=== PATIENT | female | born 1970 | race Caucasian/White ===

== ENCOUNTER 2016-07-22 11:26 | Emergency (ER) | payer SELFPAY ==
[~2016-07-22] VITALS: Ht 165.1 cm; Wt 103.5 kg
[~2016-07-22 11:26] MED LIST: ACET325T9 PO; LISI1TAB7 PO; SERT25TA PO
[2016-07-22] MEDS ORDERED: IV NORMAL SALINE 1000ML BAG 1,000 ML IV SCH (11:53)
[2016-07-22] MEDS ORDERED: ONDANSETRON PF 4 MG/2 ML VIAL. IV ONE (12:00)
[2016-07-22] MEDS ORDERED: FAMOTIDINE 20 MG/2 ML VIAL IVP ONE (12:00)
[2016-07-22] MEDS ORDERED: KETOROLAC TROMETHAMINE 30 MG/ML SYRINGE. IV ONE (12:00)
--- NOTE | 2016-07-22 12:01 | EKG ---
[facility] [address] [place] [address] Test Date: 2016-07-22 Test Time: 11:47:34 Pat Name: ANA VELASQUEZ Department: Room: Gender: F Fourchette Sewer: : 1970 Requested By: Rosita CASTREJON Order Number: [id number] Reading MD: Measurements Intervals [place] Rate: 89 P: 30 GA: 124 QRS: 35 QRSD: 88 T: 24 QT: 388 QTc: 473 Interpretive Statements SINUS RHYTHM T ABNORMALITY IN ANTEROSEPTAL LEADS PROLONGED QT RI6.01 Unconfirmed report No previous ECG available for comparison
--- NOTE | 2016-07-22 12:05 | PHYS DOC ---
Past Medical History Past Medical History: Anxiety, Depression, Diverticulitis, Hypertension, Kidney Stone Past Surgical History: Tonsillectomy, Other Additional Past Surgical Histo: PARTIAL HYSTERECTOMY, ADENOIDS REMOVED Alcohol Use: None Additional Information: CHEWS TOBACCO Drug Use: None Adult General Chief Complaint Chief Complaint: ABDOMINAL PAIN HPI HPI Patient is a 45 year old female who presents with right upper quadrant abdominal pain radiating throughout the top of her abdomen associated with nausea for the past 5 days. She also has multiple loose stools throughout this time. She denies emesis. Her pain is achy, constant, with fluctuating intensity. She denies symptom association with eating. She denies fever or chills, chest pain, cough, dyspnea, dysuria, hematuria, back pain. Review of Systems Review of Systems Constitutional: Denies fever or chills [] Eyes: Denies change in visual acuity, redness, or eye pain [] HENT: Denies nasal congestion or sore throat [] Respiratory: Denies cough or shortness of breath [] Cardiovascular: No additional information not addressed in HPI [] GI: Denies vomiting, bloody stools [] : Denies dysuria or hematuria [] Musculoskeletal: Denies back pain or joint pain [] Integument: Denies rash or skin lesions [] Neurologic: Denies headache, focal weakness or sensory changes [] Endocrine: Denies polyuria or polydipsia [] Current Medications Current Medications Current Medications Medications (Trade) Dose Ordered Sig/[facility] Start Time Stop Time Status Last Admin Dose Admin Famotidine (Pepcid) 20 mg 1X ONCE 07/22/16 12:00 07/22/16 12:01 DC 07/22/16 12:09 20 MG Fentanyl Citrate 50 mcg 50 mcg PRN Q15MIN PRN 07/22/16 12:00 07/22/16 14:38 DC 07/22/16 13:52 50 MCG Ketorolac Tromethamine (Toradol) 15 mg 1X ONCE 07/22/16 12:00 07/22/16 12:01 DC 07/22/16 12:08 15 MG Ondansetron HCl (Zofran) 4 mg 1X ONCE 07/22/16 12:00 07/22/16 12:01 DC 07/22/16 12:06 4 MG Sodium Chloride (Iv Sodium Chloride 0.9% 1000ml Bag) 1,000 ml @ 1,000 mls/hr Q1H 07/22/16 11:53 07/22/16 12:52 DC 07/22/16 12:05 1,000 MLS/HR Allergies Allergies Allergies Coded Allergies Type Severity Reaction Last Updated Verified Penicillins Adverse Reaction Intermediate stomach cramps 09/25/15 No azithromycin Adverse Reaction Intermediate increases BP 09/25/15 No Physical Exam Physical Exam Constitutional: Well developed, well nourished, no acute distress, non-toxic appearance. [] HENT: Normocephalic, atraumatic, bilateral external ears normal, oropharynx moist, nose normal. [] Eyes: PERRLA, EOMI. [] Neck: Normal range of motion, supple. [] Cardiovascular:Heart rate regular rhythm [] Lungs & Thorax: Bilateral breath sounds clear to auscultation [] Abdomen: Bowel sounds normal, soft, moderate RUQ and epigastric tenderness, no guarding or rebound. [] Skin: Warm, dry, no erythema, no rash. [] Back: No tenderness, no CVA tenderness. [] Extremities: No tenderness, ROM intact, no edema. [] Neurologic: Alert and oriented X 3, normal motor function, normal sensory function, no focal deficits noted. [] Psychologic: Affect normal, judgement normal, mood normal. [] Current Patient Data Vital Signs Vital Signs Date Time Temp Pulse Resp B/P Pulse Ox O2 Delivery O2 Flow Rate FiO2 07/22/16 14:24 77 20 115/59 99 Room Air 07/22/16 14:22 2.0 07/22/16 11:35 97.9 97.9 Lab Values Laboratory Tests Test 07/22/16 11:40 07/22/16 13:55 White Blood Count 5.7x10^3/uL (4.0-11.0) Red Blood Count 4.66x10^6/uL (3.50-5.40) Hemoglobin 13.4g/dL (12.0-15.5) Hematocrit 39.9% (36.0-47.0) Mean Corpuscular Volume 86fL (79-100) Mean Corpuscular Hemoglobin 29pg (25-35) Mean Corpuscular Hemoglobin Concent 34g/dL (31-37) Red Cell Distribution Width 13.6% (11.5-14.5) Platelet Count 244x10^3/uL (140-400) Neutrophils (%) (Auto) 75% (31-73) H Lymphocytes (%) (Auto) 16% (24-48) L Monocytes (%) (Auto) 7% (0-9) Eosinophils (%) (Auto) 2% (0-3) Basophils (%) (Auto) 0% (0-3) Neutrophils # (Auto) 4.3x10^3uL (1.8-7.7) Lymphocytes # (Auto) 0.9x10^3/uL (1.0-4.8) L Monocytes # (Auto) 0.4x10^3/uL (0.0-1.1) Eosinophils # (Auto) 0.1x10^3/uL (0.0-0.7) Basophils # (Auto) 0.0x10^3/uL (0.0-0.2) Sodium Level 144mmol/L (136-145) Potassium Level 3.2mmol/L (3.5-5.1) L Chloride Level 106mmol/L (98-107) Carbon Dioxide Level 32mmol/L (21-32) Anion Gap 6 (6-14) Blood Urea Nitrogen 11mg/dL (7-20) Creatinine 0.5mg/dL (0.6-1.0) L Estimated GFR (Cockcroft-Gault) 134.0 Glucose Level 117mg/dL (70-99) H Calcium Level 8.3mg/dL (8.5-10.1) L Total Bilirubin 0.4mg/dL (0.2-1.0) Direct Bilirubin 0.1mg/dL (0.0-0.2) Aspartate Amino Transferase (AST) 27U/L (15-37) Alanine Aminotransferase (ALT) 48U/L (14-59) Alkaline Phosphatase 73U/L (46-116) Total Protein 7.3g/dL (6.4-8.2) Albumin 3.4g/dL (3.4-5.0) Lipase 174U/L (73-393) Urine Collection Type U cath Urine Color Yellow Urine Clarity Clear Urine pH 6.0 Urine Specific [place] >=1.030 Urine Protein Negativemg/dL (NEG-TRACE) Urine Glucose (UA) Negativemg/dL (NEG) Urine Ketones (Stick) Negativemg/dL (NEG) Urine Blood Moderate (NEG) Urine Nitrite Negative (NEG) Urine Bilirubin Small (NEG) Urine Urobilinogen Dipstick 1.0mg/dL (0.2 mg/dL) Urine Leukocyte Esterase Negative (NEG) Urine RBC 6-10/HPF (0-2) Urine WBC Occ/HPF (0-4) Urine Squamous Epithelial Cells Few/LPF Urine Transitional Epithelial Cells Occ/LPF Urine Bacteria 0/HPF (0-FEW) Urine Mucus Marked/LPF Laboratory Tests 07/22/16 11:40 Laboratory Tests 07/22/16 11:40 EKG EKG EKG as interpreted by me as normal sinus rhythm, rate 89, no ST-T changes, normal intervals, no ectopy Radiology/Procedures Radiology/Procedures Ultrasound abdomen IMPRESSION: 1. Visualization is limited secondary to body habitus. 2. Hepatomegaly and diffuse hepatic steatosis. DICTATED and SIGNED BY: SUYAPA IRVIN MD DATE: 07/22/16 1431 Course & Med Decision Making Course & Med Decision Making Pertinent Labs and Imaging studies reviewed. (See chart for details) Workup is unremarkable and she is feeling better after medications. Abdominal exam is soft and nontender. She is tolerating oral intake. Discussed symptoms could be related to viral illness with associated gastritis. Will start on trial of antacid medication. Encouraged close follow-up. Return precautions given. She understands and agrees with plan. Dragon Disclaimer Dragon Disclaimer This electronic medical record was generated, in whole or in part, using a voice recognition dictation system. Departure Departure Impression: Primary Impression: Right upper quadrant abdominal pain Additional Impression: Nausea vomiting and diarrhea Disposition: HOME, SELF-CARE Condition: STABLE Referrals: ANDREIA DIOP APRN (PCP) Patient Instructions: Gastritis, Adult, [id number] Additional Instructions: Take famotidine to help with likely gastritis. Take promethazine as needed for nausea. Follow-up with your primary care doctor. Return for any concerns. Scripts Famotidine 20 Mg [id number] Mg PO BID #30 TAB Prov:Rosita CASTREJON MD 07/22/16 Promethazine Hcl 25 Mg Tablet1 Tab PO PRN Q6HRS PRN NAUSEA #10 TAB Prov:Rosita CASTREJON MD 07/22/16 Problem Qualifiers Rosita CASTREJON MD Jul 22, 2016 12:05
[2016-07-22] MEDS: FENTANYL PF 100 MCG/2 ML VIAL. IV PRN ×2 (12:12→13:52)
[2016-07-22 12:27] LABS: BASO % 0 % (0-3); EOS % 2 % (0-3); HEMATOCRIT 39.9 % (36.0-47.0); HEMOGLOBIN 13.4 g/dL (12.0-15.5); LYMPH # 0.9 x10^3/uL (1.0-4.8); LYMPH % 16 % (24-48); MEAN CORPUSCULAR HEMOGLOBIN 29 pg (25-35); MEAN CORPUSCULAR HGB CONC 34 g/dL (31-37); MEAN CORPUSCULAR VOLUME 86 fL (79-100); MONO % 7 % (0-9); NEUT % 75 % (31-73); PLATELET COUNT 244 x10^3/uL (140-400); RED BLOOD COUNT 4.66 x10^6/uL (3.50-5.40); RED CELL DISTRIBUTION WIDTH 13.6 % (11.5-14.5); WHITE BLOOD COUNT 5.7 x10^3/uL (4.0-11.0)
[2016-07-22 12:29] LABS: ALBUMIN 3.4 g/dL (3.4-5.0); CALCIUM 8.3 mg/dL (8.5-10.1); CREATININE 0.5 mg/dL (0.6-1.0); DIRECT BILIRUBIN 0.1 mg/dL (0.0-0.2); POTASSIUM 3.2 mmol/L (3.5-5.1); TOTAL BILIRUBIN 0.4 mg/dL (0.2-1.0); TOTAL PROTEIN 7.3 g/dL (6.4-8.2)
[2016-07-22 14:03] LABS: BILIRUBIN,URINE SMALL (NEG); GLUCOSE,URINE NEGATIVE (NEG); NITRITE,URINE NEGATIVE (NEG); PROTEIN,URINE NEGATIVE (NEG-TRACE)
[2016-07-22] MEDS ORDERED: PROM25TA10 PO (14:19)
[2016-07-22] MEDS ORDERED: FAMO20TA5 PO (14:19)
[2016-07-22 14:21] LABS: BACTERIA,URINE 0 /HPF (0-FEW); SQUAMOUS EPITHELIAL CELL,UR FEW /LPF; WBC,URINE OCC /HPF (0-4)
[2016-07-22 14:24] VITALS: BP 115/59
--- NOTE | 2016-07-22 14:37 | RAD ---
EXAM: Right upper quadrant ultrasound. HISTORY: Right upper quadrant/epigastric pain and nausea. COMPARISON: 10/12/2014. FINDINGS: Sonographic evaluation of the right upper quadrant was performed. Hyperechogenicity of the hepatic parenchyma is consistent with diffuse hepatic steatosis. This lowers sensitivity for focal lesions. None are seen. The liver is at least mildly enlarged spanning 18.7 cm. The gallbladder is distended but unremarkable without evidence of stones, wall thickening or pericholecystic fluid. There is no sonographic [place] sign. The common duct measures 5 mm. The visualized portions of the head and body of the pancreas reveal no abnormality. Visualization of the right kidney is limited, but it measures 12.8 cm. Cortical thickness and echogenicity are preserved. There is no hydronephrosis. The inferior vena cava and abdominal aorta are mostly of scattered. No aneurysm is seen. IMPRESSION: 1. Visualization is limited secondary to body habitus. 2. Hepatomegaly and diffuse hepatic steatosis.
== END 2016-07-22 14:38 | disposition home or self-care (01) ==
LOC: ER 11:26
DX: R10.11 Right upper quadrant pain (principal); R11.2 Nausea with vomiting, unspecified; R19.7 Diarrhea, unspecified; R10.13 Epigastric pain; F41.9 Anxiety disorder, unspecified; F32.9 Major depressive disorder, single episode, unspecified; I10 Essential (primary) hypertension; F17.220 Nicotine dependence, chewing tobacco, uncomplicated; Z88.1 Allergy status to other antibiotic agents; Z88.0 Allergy status to penicillin; Z90.711 Acquired absence of uterus with remaining cervical stump; Z87.442 Personal history of urinary calculi
CPT/HCPCS: 36415; 76705; 80048; 80076; 81001; 83690; 85027; 93005; 96361; 96374; 96375; 96376; 99285; J1885; J2405; J3010; J7030; S0028

== ENCOUNTER 2017-10-30 13:53 | Emergency (ER) | payer OTHER ==
[2017-10-30 14:40] LABS: ADD MAN DIFF? NO
[2017-10-30 14:41] LABS: BASO # 0.1 x10^3/uL (0.0-0.2); BASO % 2 % (0-3); EOS # 0.1 x10^3/uL (0.0-0.7); EOS % 2 % (0-3); HEMATOCRIT 38.2 % (36.0-47.0); HEMOGLOBIN 13.2 g/dL (12.0-15.5); LYMPH # 2.5 x10^3/uL (1.0-4.8); LYMPH % 32 % (24-48); MEAN CORPUSCULAR HEMOGLOBIN 30 pg (25-35); MEAN CORPUSCULAR HGB CONC 35 g/dL (31-37); MEAN CORPUSCULAR VOLUME 85 fL (79-100); MONO # 0.4 x10^3/uL (0.0-1.1); MONO % 5 % (0-9); NEUT # 4.9 x10^3uL (1.8-7.7); NEUT % 60 % (31-73); PLATELET COUNT 295 x10^3/uL (140-400); RED BLOOD COUNT 4.48 x10^6/uL (3.50-5.40); RED CELL DISTRIBUTION WIDTH 13.1 % (11.5-14.5)
[2017-10-30] MEDS: ASPIRIN CHEWABLE 81 MG TABLET. PO (14:53)
[2017-10-30 14:59] LABS: ANION GAP 10 (6-14); BLOOD UREA NITROGEN 9 mg/dL (7-20); BUN/CREATININE RATIO 15 (6-20); CALCIUM 8.8 mg/dL (8.5-10.1); CARBON DIOXIDE 27 mmol/L (21-32); CHLORIDE 104 mmol/L (98-107); CREATININE 0.6 mg/dL (0.6-1.0); GFR 107.6; GLUCOSE 85 mg/dL (70-99); POTASSIUM 3.2 mmol/L (3.5-5.1); SODIUM 141 mmol/L (136-145)
[2017-10-30 14:59] LABS: LIPASE 202 U/L (73-393)
[2017-10-30 15:06] LABS: ALBUMIN 3.6 g/dL (3.4-5.0); ALBUMIN/GLOBULIN RATIO 0.9 (1.0-1.7); ALK PHOS 76 U/L (46-116); ALT (SGPT) 21 U/L (14-59); AST (SGOT) 12 U/L (15-37); MAGNESIUM 2.1 mg/dL (1.8-2.4); TOTAL BILIRUBIN 0.3 mg/dL (0.2-1.0); TOTAL PROTEIN 7.5 g/dL (6.4-8.2)
[2017-10-30 15:08] LABS: TROPONINI < 0.017 ng/mL (0.000-0.055)
[2017-10-30 15:14] LABS: NT-PRO BNP 223 pg/mL (0-124)
[2017-10-30 15:33] LABS: BILIRUBIN,URINE NEGATIVE (NEG); COLOR,URINE YELLOW; GLUCOSE,URINE NEGATIVE (NEG); NITRITE,URINE NEGATIVE (NEG); PROTEIN,URINE NEGATIVE (NEG-TRACE); UROBILINOGEN,URINE 0.2 mg/dL (0.2 mg/dL)
[2017-10-30 15:39] LABS: CLARITY,URINE HAZY
[2017-10-30 15:44] LABS: BACTERIA,URINE 0 /HPF (0-FEW); RBC,URINE >40 /HPF (0-2); SQUAMOUS EPITHELIAL CELL,UR FEW /LPF; WBC,URINE RARE /HPF (0-4)
== END 2017-10-30 17:19 | disposition home or self-care (01) ==
LOC: ER 13:53
DX: R07.89 Other chest pain (principal); K04.01 Reversible pulpitis; R11.10 Vomiting, unspecified; I10 Essential (primary) hypertension; Z88.0 Allergy status to penicillin; Z88.1 Allergy status to other antibiotic agents
CPT/HCPCS: 36415; 71045; 80053; 81001; 83690; 83735; 83880; 84484; 85025; 93005; 99285-25

== ENCOUNTER → 2017-12-28 | Outpatient (CLI) | payer OTHER ==
[2017-10-30 16:30] VITALS: BP 129/61
[~2017-12-28] MED LIST changes: +AMOX500C PO; +FAMO20TA5 PO; +PROM25TA10 PO
--- NOTE | 2017-12-28 13:00 | RAD ---
EXAM: Axial and lateral views of the left calcaneus DATE: 12/28/2017 12:00 AM INDICATION: LEFT HEEL PAIN AND PAIN GOING UP THE BACK OF THE LEG WITH SWELLING, NO INJURY COMPARISON: No Prior FINDINGS/ IMPRESSION: 1. No evidence of acute fracture or dislocation. 2. Calcaneal enthesopathy. 3. Focal radiographic thickening of the Achilles tendon measuring up to 1.2 cm may be seen with tendinosis or partial tear. 4. No significant degenerative change. Electronically signed by: Alfredito Flores MD (12/28/2017 12:56 PM) [facility]
--- NOTE | 2017-12-29 16:19 | RAD ---
History: Routine screening-baseline Technique: Bilateral digital mammographic routine views were obtained with CAD - computer aided detection. Comparison: None. Findings: Breast Tissue Density B :The breast tissue is composed of mixed fatty and fibroglandular tissue. There are no suspicious masses, microcalcifications or areas of architectural distortion. Benign type calcifications are seen. Impression: Negative mammogram. BI-RADS Category 2: Benign. Recommendation: In the absence of new clinical symptoms or change in physical exam, annual screening mammography is recommended. A mammogram does not have 100% sensitivity and therefore a negative imaging study should not delay further work up of a suspicious abnormality. The patient will receive a letter with the results in the mail. Patient information is entered into the reminder system with a target due date for the next screening mammogram. The patient will receive a reminder. "Our facility is accredited by the [employer] Mammography Program."
== END | disposition home or self-care (01) ==
LOC: MAMMO 09:41
PROVIDERS: ATTEND Nurse Practitioner Family
DX: Z12.31 Encounter for screening mammogram for malignant neoplasm of breast (principal); M77.32 Calcaneal spur, left foot; I10 Essential (primary) hypertension; Z87.891 Personal history of nicotine dependence; Z90.711 Acquired absence of uterus with remaining cervical stump; Z90.89 Acquired absence of other organs
CPT/HCPCS: 73650; 77067

== ENCOUNTER 2018-06-27 12:36 | Emergency (ER) | payer OTHER ==
[~2018-06-27] VITALS: Ht 162.6 cm; Wt 103.4 kg
[2018-06-27] MEDS ORDERED: IV NORMAL SALINE 1000ML BAG 1,000 ML IV SCH (14:00)
[2018-06-27 14:01] LABS: BASO # 0.1 x10^3/uL (0.0-0.2); BASO % 1 % (0-3); EOS # 0.2 x10^3/uL (0.0-0.7); EOS % 2 % (0-3); HEMATOCRIT 41.1 % (36.0-47.0); HEMOGLOBIN 13.8 g/dL (12.0-15.5); LYMPH # 2.7 x10^3/uL (1.0-4.8); LYMPH % 25 % (24-48); MEAN CORPUSCULAR HEMOGLOBIN 29 pg (25-35); MEAN CORPUSCULAR HGB CONC 34 g/dL (31-37); MEAN CORPUSCULAR VOLUME 87 fL (79-100); MONO # 0.6 x10^3/uL (0.0-1.1); MONO % 6 % (0-9); NEUT # 7.4 x10^3uL (1.8-7.7); NEUT % 67 % (31-73); PLATELET COUNT 309 x10^3/uL (140-400); RED BLOOD COUNT 4.72 x10^6/uL (3.50-5.40); RED CELL DISTRIBUTION WIDTH 13.5 % (11.5-14.5)
[2018-06-27 14:08] LABS: CALCIUM 9.3 mg/dL (8.5-10.1); CREATININE 0.5 mg/dL (0.6-1.0); GFR 132.8; POTASSIUM 3.2 mmol/L (3.5-5.1)
[2018-06-27 14:14] LABS: ALBUMIN 3.4 g/dL (3.4-5.0); ALBUMIN/GLOBULIN RATIO 0.9 (1.0-1.7); TOTAL BILIRUBIN 0.3 mg/dL (0.2-1.0); TOTAL PROTEIN 7.4 g/dL (6.4-8.2)
[2018-06-27] MEDS ORDERED: ONDANSETRON PF 4 MG/2 ML VIAL. IV ONE (14:15)
[2018-06-27] MEDS ORDERED: HYDROmorphone 2 MG/ML VIAL IV ONE (14:15)
[2018-06-27] MEDS ORDERED: KETOROLAC 30 MG/ML VIAL. IV ONE (14:15)
[2018-06-27 14:43] LABS: BILIRUBIN,URINE NEGATIVE (NEG); CLARITY,URINE CLEAR; COLOR,URINE YELLOW; NITRITE,URINE NEGATIVE (NEG); PH,URINE 6.5; PROTEIN,URINE NEGATIVE (NEG-TRACE); UROBILINOGEN,URINE 0.2 mg/dL (0.2 mg/dL)
[2018-06-27 14:59] LABS: BACTERIA,URINE 0 /HPF (0-FEW); SQUAMOUS EPITHELIAL CELL,UR FEW /LPF; WBC,URINE 0 /HPF (0-4)
--- NOTE | 2018-06-27 16:23 | RAD ---
PQRS Compliance statement: One or more of the following individualized dose reduction techniques were utilized for this examination: 1. Automated exposure control. 2. Adjustment of the mA and/or kV according to patient size. 3. Use of iterative reconstruction technique. Indication:Right flank pain for one week. History of kidney stones. TECHNIQUE: CT abdomen and pelvis without IV contrast with multiplanar reformats. COMPARISON: 10/12/2014 FINDINGS: Limited evaluation of solid abdominal and pelvic organs due to lack of IV contrast. Heart is normal in size. No pericardial or pleural effusion. Clear lung bases. Noncontrast appearance of the liver, spleen, gallbladder, pancreas, adrenals within normal limits. Simple exophytic cyst in the interpolar left kidney measuring 3 cm dating back to 2014. No nephrolithiasis or hydronephrosis. No free pelvic fluid or ascites. No enlarged retroperitoneal or pelvic adenopathy. Shotty retroperitoneal and pelvic lymph nodes most likely reactive. No bowel obstruction. Normal appendix. Status post hysterectomy. Urinary bladder demonstrates no radiopaque stones. No pneumoperitoneum. No suspicious bony lesion. IMPRESSION: Limited evaluation of solid abdominal and pelvic organs due to lack of IV contrast. 1. No nephrolithiasis or hydronephrosis. 2. Normal appendix. Electronically signed by: Jason Gooden DO (06/27/2018 4:18 PM) [facility]
[2018-06-27] MEDS ORDERED: HYDR-3164 PO (17:09)
--- NOTE | 2018-06-27 17:09 | PHYS DOC ---
Past Medical History Past Medical History: Anxiety, Depression, Diverticulitis, Hypertension, Kidney Stone Past Surgical History: Tonsillectomy, Other Additional Past Surgical Histo: PARTIAL HYSTERECTOMY, ADENOIDS REMOVED Alcohol Use: None Drug Use: None Adult General Chief Complaint Chief Complaint: FLANK PAIN HPI HPI Patient is a 47-year-old female who presents with complaint of left-sided flank pain for the last 3 days. Patient states great symptoms are very similar to when she has had kidney stones in the past. Patient rates her pain to be an 8 out of 10. She states that she has had some nausea but no vomiting. She denies any urinary discomfort has seen no hematuria. Patient states that nothing really worsens or improves the pain. Review of Systems Review of Systems Constitutional: Denies fever or chills [] Respiratory: Denies cough or shortness of breath [] Cardiovascular: No additional information not addressed in HPI [] GI: Denies abdominal pain, nausea, vomiting or diarrhea [] : Denies dysuria or hematuria. Positive left-sided flank pain [] Musculoskeletal: Positive left-sided back pain [] All other systems were reviewed and found to be within normal limits, except as documented in this note. Current Medications Current Medications Current Medications Medications (Trade) Dose Ordered Sig/[facility] Start Time Stop Time Status Last Admin Dose Admin Hydromorphone HCl (Dilaudid) 0.5 mg 1X ONCE 06/27/18 14:15 06/27/18 14:16 DC 06/27/18 14:02 0.5 MG Ketorolac Tromethamine (Toradol 30mg Vial) 30 mg 1X ONCE 06/27/18 14:15 06/27/18 14:16 DC 06/27/18 14:02 30 MG Ondansetron HCl (Zofran) 4 mg 1X ONCE 06/27/18 14:15 06/27/18 14:16 DC 06/27/18 14:02 4 MG Sodium Chloride 1,000 ml @ 1,000 mls/ hr Q1H 06/27/18 14:00 06/27/18 14:59 DC 06/27/18 14:03 1,000 MLS/HR Allergies Allergies Allergies Coded Allergies Type Severity Reaction Last Updated Verified No Known Medication Allergies Allergy Unknown 06/27/18 Yes Penicillins Adverse Reaction Intermediate stomach cramps 06/27/18 No azithromycin Adverse Reaction Intermediate increases BP 06/27/18 No Physical Exam Physical Exam Constitutional: Well developed, well nourished, no acute distress, non-toxic appearance. [] HENT: Normocephalic, atraumatic, bilateral external ears normal, oropharynx moist, no oral exudates, nose normal. [] Eyes: PERRLA, EOMI, conjunctiva normal, no discharge. [] Neck: Normal range of motion, no tenderness, supple. [] Cardiovascular: Regular rate and rhythm [] Lungs & Thorax: Bilateral breath sounds clear to auscultation [] Abdomen: Bowel sounds normal, soft, no tenderness. [] Skin: Warm, dry, no erythema, no rash. [] Extremities: No tenderness, no cyanosis, no clubbing, ROM intact, no edema. [] Neurologic: Awake and oriented �3, no focal deficits noted. [] Current Patient Data Vital Signs Vital Signs Date Time Temp Pulse Resp B/P (MAP) Pulse Ox O2 Delivery O2 Flow Rate FiO2 06/27/18 12:47 98.7 94 20 136/83 (100) 100 Room Air 98.7 Lab Values Laboratory Tests Test 06/27/18 13:25 06/27/18 14:33 White Blood Count 11.0 x10^3/uL (4.0-11.0) Red Blood Count 4.72 x10^6/uL (3.50-5.40) Hemoglobin 13.8 g/dL (12.0-15.5) Hematocrit 41.1 % (36.0-47.0) Mean Corpuscular Volume 87 fL (79-100) Mean Corpuscular Hemoglobin 29 pg (25-35) Mean Corpuscular Hemoglobin Concent 34 g/dL (31-37) Red Cell Distribution Width 13.5 % (11.5-14.5) Platelet Count 309 x10^3/uL (140-400) Neutrophils (%) (Auto) 67 % (31-73) Lymphocytes (%) (Auto) 25 % (24-48) Monocytes (%) (Auto) 6 % (0-9) Eosinophils (%) (Auto) 2 % (0-3) Basophils (%) (Auto) 1 % (0-3) Neutrophils # (Auto) 7.4 x10^3uL (1.8-7.7) Lymphocytes # (Auto) 2.7 x10^3/uL (1.0-4.8) Monocytes # (Auto) 0.6 x10^3/uL (0.0-1.1) Eosinophils # (Auto) 0.2 x10^3/uL (0.0-0.7) Basophils # (Auto) 0.1 x10^3/uL (0.0-0.2) Sodium Level 139 mmol/L (136-145) Potassium Level 3.2 mmol/L (3.5-5.1) L Chloride Level 100 mmol/L (98-107) Carbon Dioxide Level 30 mmol/L (21-32) Anion Gap 9 (6-14) Blood Urea Nitrogen 10 mg/dL (7-20) Creatinine 0.5 mg/dL (0.6-1.0) L Estimated GFR (Cockcroft-Gault) 132.8 BUN/Creatinine Ratio 20 (6-20) Glucose Level 108 mg/dL (70-99) H Calcium Level 9.3 mg/dL (8.5-10.1) Total Bilirubin 0.3 mg/dL (0.2-1.0) Aspartate Amino Transferase (AST) 19 U/L (15-37) Alanine Aminotransferase (ALT) 27 U/L (14-59) Alkaline Phosphatase 77 U/L (46-116) Total Protein 7.4 g/dL (6.4-8.2) Albumin 3.4 g/dL (3.4-5.0) Albumin/Globulin Ratio 0.9 (1.0-1.7) L Urine Collection Type Unknown Urine Color Yellow Urine Clarity Clear Urine pH 6.5 Urine Specific [place] >=1.030 Urine Protein Negative mg/dL (NEG-TRACE) Urine Glucose (UA) Negative mg/dL (NEG) Urine Ketones (Stick) Negative mg/dL (NEG) Urine Blood Trace (NEG) Urine Nitrite Negative (NEG) Urine Bilirubin Negative (NEG) Urine Urobilinogen Dipstick 0.2 mg/dL (0.2 mg/dL) Urine Leukocyte Esterase Negative (NEG) Urine RBC 1-2 /HPF (0-2) Urine WBC 0 /HPF (0-4) Urine Squamous Epithelial Cells Few /LPF Urine Bacteria 0 /HPF (0-FEW) Urine Mucus Slight /LPF Laboratory Tests 06/27/18 13:25 Laboratory Tests 06/27/18 13:25 EKG EKG [] Radiology/Procedures Radiology/Procedures [] Impressions: CT demonstrates no acute findings for kidney stones. Course & Med Decision Making Course & Med Decision Making Pertinent Labs and Imaging studies reviewed. (See chart for details) [] Dragon Disclaimer Dragon Disclaimer This electronic medical record was generated, in whole or in part, using a voice recognition dictation system. Departure Departure Impression: Primary Impression: Flank pain Disposition: HOME, SELF-CARE Condition: STABLE Referrals: ANDREIA DIOP APRN (PCP) Patient Instructions: Flank Pain Scripts Hydrocodone/Apap 5-325 (NORCO 5-325 TABLET) 1 Each Tablet 1 EACH PO PRN Q6HRS PRN for PAIN, #12 as needed for pain Prov: HIRA DALLAS Jr. DO 06/27/18 HIRA DALLAS Jr. DO Jun 27, 2018 17:09
[2018-06-27 17:33] VITALS: BP 116/66
[2018-10-18] MEDS ORDERED: TRAM50TA PO (13:33)
[2018-10-18] MEDS ORDERED: SERT100T PO (13:33)
== END 2018-06-27 17:33 | disposition home or self-care (01) ==
LOC: ER 12:36
DX: R10.9 Unspecified abdominal pain (principal); R11.0 Nausea; M54.9 Dorsalgia, unspecified; F41.9 Anxiety disorder, unspecified; F32.9 Major depressive disorder, single episode, unspecified; I10 Essential (primary) hypertension; Z87.442 Personal history of urinary calculi; Z90.710 Acquired absence of both cervix and uterus; Z90.89 Acquired absence of other organs; Z88.0 Allergy status to penicillin; Z88.1 Allergy status to other antibiotic agents
CPT/HCPCS: 36415; 74176; 80053; 81001; 85025; 96374; 96375; 99284; J1170; J1885; J2405; J7030

== ENCOUNTER → 2018-07-30 | Outpatient (CLI) | payer OTHER ==
[~2018-07-30] MED LIST changes: +CYCL10TA2 PO; +HYDR-3164 PO; +NAPR-683 PO; +SERT100T PO; +TRAM50TA PO
--- NOTE | 2018-07-30 12:10 | KCIC ---
EXAM: Abdomen sonogram. HISTORY: Right upper quadrant pain. TECHNIQUE: Sonographic imaging of the abdomen was performed. COMPARISON: 06/27/2018. FINDINGS: The exam is limited due to body habitus and bowel gas. There is hepatomegaly and hepatic steatosis. No focal hepatic lesion is seen. The common bile duct is normal in caliber. The gallbladder, right kidney, pancreas and aorta are unremarkable. The inferior vena cava is partially obscured. IMPRESSION: 1. Hepatomegaly and hepatic steatosis. 2. Otherwise, unremarkable abdomen sonogram, with evaluation limited due to body habitus and bowel gas. Electronically signed by: Nasra Gonsalez MD (07/30/2018 12:07 PM) [id number]
--- NOTE | 2018-07-30 12:12 | KCIC ---
EXAM: Lumbar spine, 3 views; cervical spine, 3 views. HISTORY: Pain. COMPARISON: None. FINDINGS: Lumbar spine: 3 views lumbar spine are obtained. There is no significant listhesis. The vertebral bodies are normal in height. There is degenerative endplate remodeling at the lower thoracic and mid lumbar levels. There is facet arthropathy at the lumbosacral junction. There is no fracture. Cervical spine: 3 views of the cervical spine are obtained. There is minimal anterolisthesis of C3 on C4. There is degenerative endplate remodeling predominantly at C4-C5 and C5-C6. There is no fracture. IMPRESSION: 1. Mild degenerative change involving the cervical and lumbar spine, described above. 2. No acute osseous finding. Electronically signed by: Nasra Gonsalez MD (07/30/2018 12:09 PM) [id number]
== END | disposition home or self-care (01) ==
LOC: KCIC US 10:17
PROVIDERS: ATTEND Nurse Practitioner Family
DX: K76.0 Fatty (change of) liver, not elsewhere classified (principal); M47.892 Other spondylosis, cervical region; M47.896 Other spondylosis, lumbar region; M12.88 Other specific arthropathies, not elsewhere classified, other specified site; R16.0 Hepatomegaly, not elsewhere classified
CPT/HCPCS: 72040; 72100; 76705

== ENCOUNTER 2018-08-26 10:47 | Emergency (ER) | payer OTHER ==
[~2018-08-26] VITALS: Ht 162.6 cm; Wt 90.7 kg
[~2018-08-26 10:47] MED LIST changes: -CYCL10TA2 PO; -NAPR-683 PO; -SERT100T PO; -TRAM50TA PO
--- NOTE | 2018-08-26 11:26 | EKG ---
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
[2018-08-26 11:29] LABS: BASO # 0.1 x10^3/uL (0.0-0.2); BASO % 2 % (0-3); EOS # 0.1 x10^3/uL (0.0-0.7); EOS % 2 % (0-3); HEMATOCRIT 41.6 % (36.0-47.0); HEMOGLOBIN 13.8 g/dL (12.0-15.5); LYMPH # 2.6 x10^3/uL (1.0-4.8); LYMPH % 31 % (24-48); MEAN CORPUSCULAR HEMOGLOBIN 29 pg (25-35); MEAN CORPUSCULAR HGB CONC 33 g/dL (31-37); MEAN CORPUSCULAR VOLUME 88 fL (79-100); MONO # 0.4 x10^3/uL (0.0-1.1); MONO % 5 % (0-9); NEUT % 61 % (31-73); PLATELET COUNT 296 x10^3/uL (140-400); RED BLOOD COUNT 4.73 x10^6/uL (3.50-5.40); WHITE BLOOD COUNT 8.2 x10^3/uL (4.0-11.0)
[2018-08-26] MEDS ORDERED: NITROGLYCERIN SUBLINGUAL 0.4 MG BOTTLE OF 25. SL PRN (11:30)
[2018-08-26] MEDS ORDERED: ASPIRIN CHEWABLE 81 MG TABLET. PO ONE (11:30)
--- NOTE | 2018-08-26 11:40 | RAD ---
EXAM: CHEST 1 VIEW History: Chest pain COMPARISON: 10/30/2017 TECHNIQUE: Single portable radiograph of the chest FINDINGS: The cardiac silhouette is unremarkable. The lungs are clear bilaterally. The costophrenic sulci are clear and well demarcated. IMPRESSION: No radiographic evidence of an acute cardiopulmonary process. Electronically signed by: Keith Dunham MD (08/26/2018 11:37 AM) [id number]
[2018-08-26 11:43] LABS: CREATININE 0.6 mg/dL (0.6-1.0); GFR 107.2; POTASSIUM 3.5 mmol/L (3.5-5.1)
[2018-08-26 11:48] LABS: ALBUMIN 3.5 g/dL (3.4-5.0); MAGNESIUM 2.2 mg/dL (1.8-2.4); TOTAL BILIRUBIN 0.3 mg/dL (0.2-1.0); TOTAL PROTEIN 6.9 g/dL (6.4-8.2)
[2018-08-26 11:56] LABS: PROTHROMBIN TIME PATIENT 12.7 SEC (11.7-14.0)
[2018-08-26 11:58] LABS: CREATINE KINASE 40 U/L (26-192)
[2018-08-26 12:03] LABS: D-DIMER 0.33 ug/mlFEU (0.00-0.50)
[2018-08-26] MEDS ORDERED: NAPR-683 PO (12:29)
[2018-08-26] MEDS ORDERED: CYCL10TA2 PO (12:29)
[2018-08-26 12:30] VITALS: BP 134/78
[2018-08-26] MEDS ORDERED: INSULIN REGULAR 100 UNIT/ML 3ML VIAL. IV ONE (12:30)
[2018-08-26] MEDS ORDERED: KETOROLAC 30 MG/ML VIAL. IV ONE (12:30)
--- NOTE | 2018-08-26 12:31 | PHYS DOC ---
Past Medical History Past Medical History: Anxiety, Depression, Diverticulitis, Hypertension, Kidney Stone Past Surgical History: Tonsillectomy, Other Additional Past Surgical Histo: PARTIAL HYSTERECTOMY, ADENOIDS REMOVED Smoking: Quit Greater Than 1 Year Alcohol Use: None Drug Use: None Adult General Chief Complaint Chief Complaint: CHEST PAIN HPI HPI Patient is a 48 year old female who presents with complaining of chest pain. Patient complaining of intermittent episodes of heaviness and pressure in left side of chest since 5 AM that last about 2 minutes and repeated every 5 minutes without relation to activity. Patient rated her pain 8/10 and states the pain is associated with shortness of breath, palpitation and dizziness without nausea , paresthesia, fever and chills, cough. Patient states she didn't take any pain medication. Patient had history of hypertension and family history of coronary artery disease. Review of Systems Review of Systems Constitutional: Denies fever or chills [] Eyes: Denies change in visual acuity, redness, or eye pain [] HENT: Denies nasal congestion or sore throat [] Respiratory: Denies cough, reports shortness of breath [] Cardiovascular: No additional information not addressed in HPI [] GI: Denies abdominal pain, nausea, vomiting, bloody stools or diarrhea [] : Denies dysuria or hematuria [] Musculoskeletal: Denies back pain or joint pain [] Integument: Denies rash or skin lesions [] Neurologic: Denies headache, focal weakness or sensory changes [] Endocrine: Denies polyuria or polydipsia [] All other systems were reviewed and found to be within normal limits, except as documented in this note. Current Medications Current Medications Current Medications Medications (Trade) Dose Ordered Sig/Mauro Start Time Stop Time Status Last Admin Dose Admin Aspirin (Children'S Aspirin) 324 mg 1X ONCE 08/26/18 11:30 08/26/18 11:31 DC 08/26/18 11:37 324 MG Insulin Human Regular (HumuLIN R VIAL) 10 unit 1X ONCE 08/26/18 12:30 08/26/18 12:30 DC Ketorolac Tromethamine (Toradol 30mg Vial) 30 mg 1X ONCE 08/26/18 12:30 08/26/18 12:31 DC 08/26/18 12:30 30 MG Nitroglycerin (Nitrostat) 0.4 mg PRN Q5MIN PRN 08/26/18 11:30 08/27/18 11:29 08/26/18 11:39 0.4 MG Allergies Allergies Allergies Coded Allergies Type Severity Reaction Last Updated Verified Penicillins Adverse Reaction Intermediate stomach cramps 08/26/18 No azithromycin Adverse Reaction Intermediate increases BP 08/26/18 No Physical Exam Physical Exam Constitutional: Well developed, well nourished, mild distress, non-toxic appearance. [] HENT: Normocephalic, atraumatic. Eyes: PERRLA, EOMI, conjunctiva normal, no discharge. [] Neck: Normal range of motion, no tenderness, supple, no stridor. [] Cardiovascular:Heart rate regular rhythm, no murmur [] Lungs & Thorax: Bilateral breath sounds clear to auscultation, reproducible left-sided chest pain [] Abdomen: Bowel sounds normal, soft, no tenderness, no masses, no pulsatile masses. [] Skin: Warm, dry, no erythema, no rash. [] Back: No tenderness, no CVA tenderness. [] Extremities: No tenderness, no cyanosis, no clubbing, ROM intact, no edema. [] Neurologic: Alert and oriented X 3, normal motor function, normal sensory function, no focal deficits noted. [] Psychologic: Affect anxious, judgement normal, mood normal. [] Current Patient Data Vital Signs Vital Signs Date Time Temp Pulse Resp B/P (MAP) Pulse Ox O2 Delivery O2 Flow Rate FiO2 08/26/18 12:30 72 20 134/78 (96) 97 Room Air 08/26/18 10:55 97.5 97.5 Lab Values Laboratory Tests Test 08/26/18 11:15 White Blood Count 8.2 x10^3/uL (4.0-11.0) Red Blood Count 4.73 x10^6/uL (3.50-5.40) Hemoglobin 13.8 g/dL (12.0-15.5) Hematocrit 41.6 % (36.0-47.0) Mean Corpuscular Volume 88 fL (79-100) Mean Corpuscular Hemoglobin 29 pg (25-35) Mean Corpuscular Hemoglobin Concent 33 g/dL (31-37) Red Cell Distribution Width 13.0 % (11.5-14.5) Platelet Count 296 x10^3/uL (140-400) Neutrophils (%) (Auto) 61 % (31-73) Lymphocytes (%) (Auto) 31 % (24-48) Monocytes (%) (Auto) 5 % (0-9) Eosinophils (%) (Auto) 2 % (0-3) Basophils (%) (Auto) 2 % (0-3) Neutrophils # (Auto) 5.0 x10^3uL (1.8-7.7) Lymphocytes # (Auto) 2.6 x10^3/uL (1.0-4.8) Monocytes # (Auto) 0.4 x10^3/uL (0.0-1.1) Eosinophils # (Auto) 0.1 x10^3/uL (0.0-0.7) Basophils # (Auto) 0.1 x10^3/uL (0.0-0.2) Prothrombin Time 12.7 SEC (11.7-14.0) Prothrombin Time INR 1.0 (0.8-1.1) D-Dimer (Julia) 0.33 ug/mlFEU (0.00-0.50) Sodium Level 142 mmol/L (136-145) Potassium Level 3.5 mmol/L (3.5-5.1) Chloride Level 103 mmol/L (98-107) Carbon Dioxide Level 32 mmol/L (21-32) Anion Gap 7 (6-14) Blood Urea Nitrogen 8 mg/dL (7-20) Creatinine 0.6 mg/dL (0.6-1.0) Estimated GFR (Cockcroft-Gault) 107.2 BUN/Creatinine Ratio 13 (6-20) Glucose Level 109 mg/dL (70-99) H Calcium Level 9.0 mg/dL (8.5-10.1) Magnesium Level 2.2 mg/dL (1.8-2.4) Total Bilirubin 0.3 mg/dL (0.2-1.0) Aspartate Amino Transferase (AST) 18 U/L (15-37) Alanine Aminotransferase (ALT) 29 U/L (14-59) Alkaline Phosphatase 77 U/L (46-116) Creatine Kinase 40 U/L (26-192) Creatine Kinase MB (Mass) < 0.5 ng/mL (0.0-3.6) Creatine Kinase MB Relative Index % (0-4) Troponin I Quantitative < 0.017 ng/mL (0.000-0.055) EZ-Qau-U-Type Natriuretic Peptide 76 pg/mL (0-124) Total Protein 6.9 g/dL (6.4-8.2) Albumin 3.5 g/dL (3.4-5.0) Albumin/Globulin Ratio 1.0 (1.0-1.7) Lipase 162 U/L (73-393) Laboratory Tests 08/26/18 11:15 Laboratory Tests 08/26/18 11:15 EKG EKG EKG interpreted by me. EKG at 1103 showed normal sinus rhythm with multiple artifact him a number specific areas T-wave abnormalities, no acute ST and T- wave abnormalities. Radiology/Procedures Radiology/Procedures [facility] [address] [place] [address] IMAGING REPORT Signed PATIENT: ANA VELASQUEZ ACCOUNT: [id number] : 1970 LOCATION: ER AGE: 48 SEX: F EXAM STATUS: REG ER ORD. PHYSICIAN: MARK WATERMAN MD REASON: chest pain PROCEDURE: PORTABLE CHEST 1V EXAM: CHEST 1 VIEW History: Chest pain COMPARISON: 10/30/2017 TECHNIQUE: Single portable radiograph of the chest FINDINGS: The cardiac silhouette is unremarkable. The lungs are clear bilaterally. The costophrenic sulci are clear and well demarcated. IMPRESSION: No radiographic evidence of an acute cardiopulmonary process. Electronically signed by: Keith Dunham MD (08/26/2018 11:37 AM) [facility] DICTATED and SIGNED BY: KEITH DUNHAM MD DATE: 08/26/18 1132 Course & Med Decision Making Course & Med Decision Making Pertinent Labs and Imaging studies reviewed. (See chart for details) Evaluation of patient in ER showed 48-year-old female patient with complaining of intermittent episodes of left-sided chest pain since this morning. Patient had unremarkable physical exam except for anxiety. Labs including cardiac enzymes, d-dimer, electrolytes, liver and renal function test was unremarkable. Chest x-ray did not show any abnormality. Patient was treated with aspirin and nitroglycerin without improvement of her pain. Patient treated with Toradol with improvement of her pain. Plan discharge patient home to diagnose of musculoskeletal chest pain. Dragon Disclaimer Dragon Disclaimer This electronic medical record was generated, in whole or in part, using a voice recognition dictation system. Departure Departure Impression: Primary Impression: Musculoskeletal chest pain Additional Impression: Anxiety about health Disposition: HOME, SELF-CARE (at 12:30) Condition: IMPROVED Referrals: ANDREIA DIOP APRN (PCP) Patient Instructions: Chest Wall Pain, Muscle Strain Additional Instructions: Apply ice on the affected area Follow-up with your primary care physician in 3-5 days Return to ER if not getting better Scripts Naproxen (NAPROSYN) 500 Mg Tablet 1 TAB PO BID for pain, #20 TAB Prov: MARK WATERMAN MD 08/26/18 Cyclobenzaprine Hcl (CYCLOBENZAPRINE HCL) 10 Mg Tablet 1 TAB PO TID for muscle pain, #20 TAB Prov: MARK WATERMAN MD 08/26/18 Problem Qualifiers MARK WATERMAN MD Aug 26, 2018 12:30
[2018-10-18] MEDS ORDERED: TRAM50TA PO (13:33)
[2018-10-18] MEDS ORDERED: SERT100T PO (13:33)
== END 2018-08-26 12:47 | disposition home or self-care (01) ==
LOC: ER 10:47
DX: R07.89 Other chest pain (principal); F41.9 Anxiety disorder, unspecified; F32.9 Major depressive disorder, single episode, unspecified; R06.02 Shortness of breath; R00.2 Palpitations; R42 Dizziness and giddiness; Z79.82 Long term (current) use of aspirin; I10 Essential (primary) hypertension; Z90.89 Acquired absence of other organs; Z90.710 Acquired absence of both cervix and uterus; Z87.891 Personal history of nicotine dependence; Z87.442 Personal history of urinary calculi; Z88.0 Allergy status to penicillin; Z88.1 Allergy status to other antibiotic agents
CPT/HCPCS: 36415; 71045; 80053; 82553; 83690; 83735; 83880; 84484; 85025; 85379; 85610; 93005; 96374; 99284; J1885

== ENCOUNTER 2018-09-22 13:43 | Emergency (ER) | payer OTHER ==
[~2018-09-22] VITALS: Ht 170.2 cm; Wt 90.7 kg
[~2018-09-22 13:43] MED LIST changes: +CYCL10TA2 PO; +NAPR-683 PO
[2018-09-22 13:51] VITALS: BP 118/73
[2018-09-22] MEDS ORDERED: NAPROXEN 500 MG TABLET PO STA (13:56)
[2018-09-22] MEDS ORDERED: diazePAM 5 MG TABLET PO ONE (14:00)
[2018-09-22] MEDS ORDERED: HYDROcodone/APAP 5/325MG 1 TAB TABLET PO ONE (14:00)
[2018-09-22] MEDS ORDERED: HYDR-3164 PO (14:03)
--- NOTE | 2018-09-22 14:03 | PHYS DOC ---
Past Medical History Past Medical History: Anxiety, Depression, Diverticulitis, Hypertension, Kidney Stone Past Surgical History: Tonsillectomy, Other Additional Past Surgical Histo: PARTIAL HYSTERECTOMY, ADENOIDS REMOVED Alcohol Use: None Drug Use: None Adult General Chief Complaint Chief Complaint: BACK PAIN - NO INJURY HPI HPI Patient is a 48 year old female who presents complaining of a sharp 7 out of 10 bilateral low back pain radiating to bilateral lower extremities that began 4 days ago. Patient states she has history of chronic back pain but in the last 4 days symptoms of good 10 worse. Patient states she has already had x-rays on her lumbar and thoracic spine and was informed she has degenerative disc disease. She states she has been taking Flexeril with no relief. Patient states her pain is worse on sitting in certain positions. Review of Systems Review of Systems Constitutional: Denies fever or chills [] GI: Denies abdominal pain, nausea, vomiting, bloody stools or diarrhea [] : Denies dysuria or hematuria [] Musculoskeletal: Reports low back pain Integument: Denies rash or skin lesions [] Neurologic: Denies headache, focal weakness or sensory changes [] All other systems were reviewed and found to be within normal limits, except as documented in this note. Current Medications Current Medications Current Medications Medications (Trade) Dose Ordered Sig/Mauro Start Time Stop Time Status Last Admin Dose Admin Acetaminophen/ Hydrocodone Bitart (Lortab 5/325) 2 tab 1X ONCE 09/22/18 14:00 09/22/18 14:01 UNV Diazepam (Valium) 5 mg 1X ONCE 09/22/18 14:00 09/22/18 14:01 UNV Naproxen (Naprosyn) 500 mg 1X STAT 09/22/18 13:56 09/22/18 13:57 UNV Allergies Allergies Allergies Coded Allergies Type Severity Reaction Last Updated Verified Penicillins Adverse Reaction Intermediate stomach cramps 08/26/18 No azithromycin Adverse Reaction Intermediate increases BP 08/26/18 No Physical Exam Physical Exam Constitutional: Well developed, well nourished, no acute distress, non-toxic appearance. [] Abdomen: Bowel sounds normal, soft, no tenderness, no masses, no pulsatile masses. [] Skin: Warm, dry, no erythema, no rash. [] Back: Diffuse paraspinal muscle tenderness bilateral lumbar spine, no midline lumbar spine tenderness, no CVA tenderness. [] Extremities: No tenderness, no cyanosis, no clubbing, ROM intact, no edema. [] Neurologic: Alert and oriented X 3, normal motor function, normal sensory function, no focal deficits noted. [] Psychologic: Affect normal, judgement normal, mood normal. [] Current Patient Data Vital Signs Vital Signs Date Time Temp Pulse Resp B/P (MAP) Pulse Ox O2 Delivery O2 Flow Rate FiO2 09/22/18 13:51 98.6 92 16 118/73 (88) 97 Room Air 98.6 EKG EKG [] Radiology/Procedures Radiology/Procedures [] Course & Med Decision Making Course & Med Decision Making Pertinent Labs and Imaging studies reviewed. (See chart for details) This is a 48-year-old female patient presenting to the ED today with exacerbation of chronic low back patient was given pain relief in the ED and discharged to home. Follow-up with her PCP. She has no cauda equina syndrome symptoms. She is in no distress. Dragon Disclaimer Dragon Disclaimer This electronic medical record was generated, in whole or in part, using a voice recognition dictation system. Departure Departure Impression: Primary Impression: Chronic back pain Disposition: HOME, SELF-CARE Condition: STABLE Referrals: ANDREIA DIOP APRN (PCP) Follow-up in one week Patient Instructions: Back Pain, Adult Additional Instructions: You were evaluated in the emergency room for chronic back pain. Please continue following up with the primary care doctor. Scripts Hydrocodone/Apap 5-325 (NORCO 5-325 TABLET) 1 Each Tablet 1 TAB PO Q6HRS, #8 TAB Prov: JUAN MEZA APRN 09/22/18 Problem Qualifiers Primary Impression: Chronic back pain Back pain location: low back pain Back pain laterality: bilateral Sciatica presence: without sciatica Qualified Codes: M54.5 - Low back pain; G89.29 - Other chronic pain JUAN MEZA APRN September 22, 2018 14:03
[2018-10-18] MEDS ORDERED: TRAM50TA PO (13:33)
[2018-10-18] MEDS ORDERED: SERT100T PO (13:33)
== END 2018-09-22 14:25 | disposition home or self-care (01) ==
LOC: ER 13:43
DX: G89.29 Other chronic pain (principal); M54.5 Low back pain; F41.9 Anxiety disorder, unspecified; F32.9 Major depressive disorder, single episode, unspecified; I10 Essential (primary) hypertension; Z90.89 Acquired absence of other organs; Z90.710 Acquired absence of both cervix and uterus; Z87.442 Personal history of urinary calculi; Z88.0 Allergy status to penicillin; Z88.1 Allergy status to other antibiotic agents
CPT/HCPCS: 99284

== ENCOUNTER → 2018-10-01 | Outpatient (CLI) | payer OTHER ==
[2018-09-22 13:51] VITALS: BP 118/73
[~2018-10-01] MED LIST changes: +SERT100T PO; +TRAM50TA PO
--- NOTE | 2018-10-01 15:08 | KCIC ---
MRI Lumbar Spine without contrast History: Lumbago, radiating pain into both legs Technique: Multiplanar, multi sequential noncontrast MR imaging was performed of the lumbar spine. Comparison: None Findings: Lumbar vertebral body stature and AP alignment are maintained. There is mild degenerative disc disease at L4-5, mild disc desiccation L3-4. Conus terminates near L1. There is no significant marrow edema. L3-L4: There is negligible disc osteophyte complex. Spinal canal and neural foramina are adequate. There is ybxd-ie-aydukpnf facet hypertrophic change. L4-L5: There is negligible disc osteophyte complex. There is right posterior annular tear. Spinal canal and neural foramina are adequate. L5-S1: Spinal canal and neural foramina are adequate. Impression: 1. There is no significant lumbar spinal stenosis or neural foramina compromise. There is very mild spondylosis. Electronically signed by: Mars Vivar MD (10/01/2018 3:05 PM) [facility]
== END | disposition home or self-care (01) ==
LOC: KCIC MRI 14:21
PROVIDERS: ATTEND Nurse Practitioner Family
DX: M47.816 Spondylosis without myelopathy or radiculopathy, lumbar region (principal); M51.36 Other intervertebral disc degeneration, lumbar region; M25.78 Osteophyte, vertebrae
CPT/HCPCS: 72148

== ENCOUNTER → 2018-10-05 | Outpatient (CLI) | payer OTHER ==
[2018-09-22 13:51] VITALS: BP 118/73
--- NOTE | 2018-10-05 13:17 | KCIC ---
EXAM: Thoracic spine, 3 views. HISTORY: Pain. COMPARISON: None. FINDINGS: 3 views of the thoracic spine are obtained. There is minimal S-shaped thoracal lumbar curvature. There is slight increased thoracic kyphosis. There is degenerative endplate remodeling at all levels. No fracture or listhesis is seen. IMPRESSION: Multilevel degenerative change. No acute osseous finding. Electronically signed by: Nasra Gonsalez MD (10/05/2018 1:14 PM) [facility]
== END | disposition home or self-care (01) ==
LOC: KCIC 12:38
PROVIDERS: ATTEND Nurse Practitioner Family
DX: M47.814 Spondylosis without myelopathy or radiculopathy, thoracic region (principal); M40.294 Other kyphosis, thoracic region
CPT/HCPCS: 72072

== ENCOUNTER → 2018-10-18 | Outpatient (CLI) | payer OTHER ==
[2018-09-22 13:51] VITALS: BP 118/73
--- NOTE | 2018-10-19 03:09 | PAIN ---
DATE OF SERVICE: 10/18/2018 INITIAL CONSULTATION FOR PAIN CLINIC CHIEF COMPLAINT: Low back and bilateral lower extremity pain, left slightly greater than right. HISTORY OF PRESENT ILLNESS: This is a 48-year-old female who presents with history of pain for about 2 years, increasing in the low back and bilateral lower extremities, mostly in the lateral thighs, anterior thighs, medial thighs and lower legs, again worse on the left than the right, but present bilaterally, which was not a result of any specific injury or action she is aware of. She is very active. 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 The patient reports the pain is getting worse and worse over time and generally she can take some [id number] naproxen or Aleve or Motrin and it would help, but it has not been helping as much lately. The patient reports the pain is sharp, stabbing, throbbing, shooting, radiating with numbness and tingling, worse as the day goes on, intermittent in intensity, but always present, burning pain, aching, cramping across the back, into the lower extremities, again mostly in the lateral anterior thighs, anterior medial thighs, slightly worse on the left than the right, but present bilaterally. The patient has been doing stretching and strengthening exercises on her own. She had some physical therapy many years ago she reports, but has not had any recently, but is doing the stretching and strengthening exercises and conditioning on her own at home when she can generally in the mornings and in the evenings when she gets home from work she does some stretching as well. During the workday, she is lifting items also. The patient reports she has not had chiropractic treatments or other formal therapies at this time. She is taking hydrocodone as well as tramadol and hydrocodone with decreased pain by about 50%. The patient reports her disability rating from 0 to 10, 10 being the worst, is 7 with family and home responsibilities, 8 with recreation and sexual behavior, 4 with social activity, 10 with occupation activities, 6 with self-care and 2 with life support activities. The patient did have MRI scan of the lumbar spine dated 10/01/2018 showing L3-L4 disk osteophyte complex with [id number] facet hypertrophic change. L4-L5 shows disk osteophyte complex as well, which is negligible with the right posterior annular tear and spinal canal and neural foraminal are adequate at L5-S1. The patient reports no loss of motor function, but significant fatigability on both lower extremities, especially the left side with standing and walking. PAST MEDICAL HISTORY: Significant for shortness of breath, hypertension, bronchitis, right pulmonary nodule, history of colon polyps, diverticulitis in 2015, low potassium in the past, history of depression, arthritis. PREVIOUS SURGERY: Include partial hysterectomy in 1995, tonsillectomy in 1985 and teeth extraction in the past as well. CURRENT MEDICATIONS: Include naproxen, lisinopril, Zoloft, tramadol and hydrocodone. ALLERGIES: THE PATIENT IS ALLERGIC TO PENICILLIN AND Z-EDDIE. FAMILY HISTORY: Significant for hypertension, peripheral vascular disease, diabetes, kidney stones, cancer. SOCIAL HISTORY: The patient does not drink alcohol. Quit smoking about 5 years ago, chews tobacco now for about 5 years, is single, lives locally in [place], [place]. 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 REVIEW OF SYSTEMS: The patient's review of systems is positive for those items mentioned in history of present illness. All systems reviewed and otherwise negative. It is complete, full and well documented on the patient's chart. PHYSICAL EXAMINATION: VITAL SIGNS: Blood pressure is 140/95, pulse 74, respirations 16, temperature is 98.0 degrees Fahrenheit, height is 5 feet 4 inches, weight is 217 pounds. GENERAL: The patient is awake, alert, oriented, appropriate, very pleasant demeanor. HEENT: Head shows normocephalic, atraumatic. Extraocular movements are intact and symmetrical. Oral cavity: Mucous membranes moist and pink. Dentition is intact. NECK: Shows anterior throat supple without palpable lymphadenopathy noted. Swallow reflex symmetrical. CHEST: Shows normal on inspection. Breath sounds are clear to auscultation bilaterally. HEART: Shows S1, S2 clear. No murmurs auscultated. ABDOMEN: Obese, soft, nontender, nondistended. No palpable organomegaly is noted. No rebound or guarding demonstrated. BACK: Shows spine grossly in the midline. Normal-appearing thoracic kyphosis and minor flattening of lumbar lordotic curvature. Lumbar paraspinous muscle shows symmetrical on inspection; on palpation shows some moderate tenderness diffusely throughout the upper, middle and lower distribution of the paraspinous muscles, but are symmetrical without evidence of atrophy or hypertrophy, no trigger points, no radiation of pain. The patient has no tenderness over the spinous processes, sacrum or sacroiliac regions. The patient does show good rotation motion greater than 10 degrees right and left as well as extension greater than 10 degrees, forward flexion 45 degrees without significant pain reported as well. EXTREMITIES: Lower extremities show deep tendon reflexes at 1+ in the patellar and tendo calcaneus tendons are equal. Motor exam is approximately 4 on a scale of 5 with left dorsiflexion, extension, quadriceps and hamstring flexion and 5/5 on the right. Peripheral pulses are 1+ posterior tibia. No peripheral edema is noted. Lower extremities are warm and dry to touch, equal in color and appearance. Peripheral pulses are 1+ posterior tibia. No peripheral edema is noted. Straight leg raise noted to be positive bilaterally at about 40 degrees, decreased with knee flexion. Gaenslen's and Cleveland's maneuvers are negative bilaterally. The patient is able to stand, stand on her toes without difficulty or loss of balance, walks with a slight shuffling gait, does not appear to favor the right or left lower extremity significantly, not using any assistive devices while she is at her visit today. SKIN: Shows warm and dry, good turgor. No edema. No sores, rashes or bruising throughout. IMPRESSION: This is a 48-year-old female with: 1. About 2-year history of pain in the low back, bilateral lower extremities in a radicular fashion following an L4-L5 dermatomal distribution, slightly worse on the left than the right. 2. Hypertension. 3. Arthritis. PLAN: Options were discussed with the patient including conservative medical management, physical therapy, interventional techniques and she is doing therapy on her own, stretching and strengthening exercises and walking as much as possible and she would like to pursue interventional techniques. We discussed a lumbar epidural steroid injection using description as well as anatomical models to describe the procedure. We will wait for preauthorization with her insurance provider and she would like to proceed with lumbar epidural steroid injection for radicular pain, L4-L5 dermatome levels, right L4-L5 translaminar approach for lumbar epidural steroid injection on her return. The patient will continue with stretching in the meantime. We will have her return in approximately 1 week to plan on lumbar epidural steroid injection at that time. STEPHANIE ARGUETA MD DR: TAMARA/juju JOB#: [id number] / [id number] ANDREIA Lieberman APRN
== END | disposition home or self-care (01) ==
LOC: PNCL 09:45
PROVIDERS: ATTEND Anesthesiology
DX: M54.5 Low back pain (principal); M79.604 Pain in right leg; M79.605 Pain in left leg; I10 Essential (primary) hypertension; F17.220 Nicotine dependence, chewing tobacco, uncomplicated; M19.90 Unspecified osteoarthritis, unspecified site; Z90.710 Acquired absence of both cervix and uterus; Z82.49 Family history of ischemic heart disease and other diseases of the circulatory system
CPT/HCPCS: G0463

== ENCOUNTER 2018-10-22 11:35 | Emergency (ER) | payer OTHER ==
[~2018-10-22] VITALS: Ht 165.1 cm; Wt 97.6 kg
[2018-10-22] MEDS ORDERED: ASPIRIN 325 MG TABLET PO ONE (12:15)
[2018-10-22] MEDS ORDERED: diphenhydrAMINE 50 MG/ML VIAL IVP ONE (12:15)
[2018-10-22] MEDS ORDERED: IV NORMAL SALINE 1000ML BAG 1,000 ML IV ONE (12:15)
[2018-10-22] MEDS ORDERED: DEXAMETHASONE SOD PHOS 20 MG/5 ML VIAL. IV ONE (12:15)
[2018-10-22] MEDS ORDERED: FAMOTIDINE 20 MG/2 ML VIAL IVP ONE (12:15)
--- NOTE | 2018-10-22 12:23 | PHYS DOC ---
Past Medical History Past Medical History: Anxiety, Depression, Diverticulitis, Hypertension, Kidney Stone, Other Additional Past Medical Histor: BACK PAIN Past Surgical History: Tonsillectomy, Other Additional Past Surgical Histo: PARTIAL HYSTERECTOMY, ADENOIDS REMOVED Alcohol Use: None Drug Use: None Adult General Chief Complaint Chief Complaint: ALLERGIC REACTION HPI HPI Patient is a 48 year old female with a history of hypertension, depression, anxiety, who presents to the ED today for multiple complaints. Patient states she's had chronic back pain for years. She states yesterday she was seen at the pain clinic by Dr. Argueta and she was started on Ryos which is a new prednisone. She states she took the prednisone yesterday with tramadol, she states she woke up this morning and everything is hurting, she states her head is hurting, her back is hurting, her legs are hurting, even her chest is hurting, denies any difficulty breathing or swallowing. She told the nurse she had a rash but I don't see any rash on patient's face on the body. She rates all her pain at 8 out of 10, describes the pain as throbbing and intermittent. States most of the pain is when she was walking. She states she is supposed to start injections to her spine next week. Review of Systems Review of Systems Constitutional: Denies fever or chills [] Eyes: Denies change in visual acuity, redness, or eye pain [] HENT: Denies nasal congestion or sore throat [] Respiratory: Denies cough or shortness of breath [] Cardiovascular: Reports chest pain GI: Denies abdominal pain, nausea, vomiting, bloody stools or diarrhea [] : Denies dysuria or hematuria [] Musculoskeletal: Reports neck pain, back pain, bilateral leg pain Integument: Reports rash Neurologic: Reports headache, denies focal weakness or sensory changes [] All other systems were reviewed and found to be within normal limits, except as documented in this note. Current Medications Current Medications Current Medications Medications (Trade) Dose Ordered Sig/Mauro Start Time Stop Time Status Last Admin Dose Admin Aspirin (Leatha Aspirin) 325 mg 1X ONCE 10/22/18 12:15 10/22/18 12:16 DC 10/22/18 12:54 325 MG Dexamethasone Sodium Phosphate (Decadron) 10 mg 1X ONCE 10/22/18 12:15 10/22/18 12:16 DC 10/22/18 12:55 10 MG Diphenhydramine HCl (Benadryl) 25 mg 1X ONCE 10/22/18 12:15 10/22/18 12:16 DC 10/22/18 12:54 25 MG Famotidine (Pepcid Vial) 20 mg 1X ONCE 10/22/18 12:15 10/22/18 12:16 DC 10/22/18 12:54 20 MG Ketorolac Tromethamine (Toradol 30mg Vial) 30 mg 1X ONCE 10/22/18 12:45 10/22/18 12:46 DC 10/22/18 12:55 30 MG Potassium Chloride (Klor-Con) 40 meq 1X ONCE 10/22/18 13:30 10/22/18 13:31 DC 10/22/18 13:39 40 MEQ Sodium Chloride 1,000 ml @ 1,000 mls/hr 1X ONCE 10/22/18 12:15 10/22/18 13:14 DC 10/22/18 12:53 1,000 MLS/HR Allergies Allergies Allergies Coded Allergies Type Severity Reaction Last Updated Verified prednisone Allergy Mild rash,itching 10/22/18 Yes Penicillins Adverse Reaction Intermediate stomach cramps 08/26/18 No azithromycin Adverse Reaction Intermediate increases BP 08/26/18 No Physical Exam Physical Exam Constitutional: Well developed, well nourished, no acute distress, non-toxic appearance. [] HENT: Normocephalic, atraumatic, bilateral external ears normal, oropharynx moist, no oral exudates, nose normal. [] Eyes: PERRLA, EOMI, conjunctiva normal, no discharge. [] Neck: Normal range of motion, no tenderness, supple, no stridor. [] Cardiovascular:Heart rate regular rhythm, no murmur [] Lungs & Thorax: Bilateral breath sounds clear to auscultation [] Abdomen: Bowel sounds normal, soft, no tenderness, no masses, no pulsatile masses. [] Skin: Warm, dry, no erythema, no rash. [] Back: No tenderness, no CVA tenderness. [] Extremities: No tenderness, no cyanosis, no clubbing, ROM intact, no edema. [] Neurologic: Alert and oriented X 3, normal motor function, normal sensory function, no focal deficits noted. [] Psychologic: Affect normal, judgement normal, mood normal. [] Current Patient Data Vital Signs Vital Signs Date Time Temp Pulse Resp B/P (MAP) Pulse Ox O2 Delivery O2 Flow Rate FiO2 10/22/18 13:42 78 123/73 (90) Room Air 10/22/18 13:12 19 97 10/22/18 11:38 98.2 98.2 Lab Values Laboratory Tests Test 10/22/18 12:45 10/22/18 13:28 White Blood Count 10.7 x10^3/uL (4.0-11.0) Red Blood Count 4.77 x10^6/uL (3.50-5.40) Hemoglobin 14.2 g/dL (12.0-15.5) Hematocrit 41.4 % (36.0-47.0) Mean Corpuscular Volume 87 fL (79-100) Mean Corpuscular Hemoglobin 30 pg (25-35) Mean Corpuscular Hemoglobin Concent 34 g/dL (31-37) Red Cell Distribution Width 13.1 % (11.5-14.5) Platelet Count 282 x10^3/uL (140-400) Neutrophils (%) (Auto) 68 % (31-73) Lymphocytes (%) (Auto) 24 % (24-48) Monocytes (%) (Auto) 5 % (0-9) Eosinophils (%) (Auto) 2 % (0-3) Basophils (%) (Auto) 1 % (0-3) Neutrophils # (Auto) 7.2 x10^3uL (1.8-7.7) Lymphocytes # (Auto) 2.6 x10^3/uL (1.0-4.8) Monocytes # (Auto) 0.6 x10^3/uL (0.0-1.1) Eosinophils # (Auto) 0.2 x10^3/uL (0.0-0.7) Basophils # (Auto) 0.1 x10^3/uL (0.0-0.2) Prothrombin Time 12.4 SEC (11.7-14.0) Prothrombin Time INR 1.0 (0.8-1.1) PTT 31 SEC (24-38) Sodium Level 139 mmol/L (136-145) Potassium Level 3.2 mmol/L (3.5-5.1) L Chloride Level 101 mmol/L (98-107) Carbon Dioxide Level 29 mmol/L (21-32) Anion Gap 9 (6-14) Blood Urea Nitrogen 11 mg/dL (7-20) Creatinine 0.7 mg/dL (0.6-1.0) Estimated GFR (Cockcroft-Gault) 89.7 BUN/Creatinine Ratio 16 (6-20) Glucose Level 127 mg/dL (70-99) H Calcium Level 9.5 mg/dL (8.5-10.1) Magnesium Level 1.9 mg/dL (1.8-2.4) Total Bilirubin 0.5 mg/dL (0.2-1.0) Aspartate Amino Transferase (AST) 17 U/L (15-37) Alanine Aminotransferase (ALT) 31 U/L (14-59) Alkaline Phosphatase 83 U/L (46-116) Creatine Kinase 43 U/L (26-192) Creatine Kinase MB (Mass) 0.9 ng/mL (0.0-3.6) Creatine Kinase MB Relative Index % (0-4) Myoglobin 23 ng/mL (9-82) Troponin I Quantitative < 0.017 ng/mL (0.000-0.055) TB-Jvt-D-Type Natriuretic Peptide 43 pg/mL (0-124) Total Protein 7.6 g/dL (6.4-8.2) Albumin 3.5 g/dL (3.4-5.0) Albumin/Globulin Ratio 0.9 (1.0-1.7) L Lipase 171 U/L (73-393) Thyroid Stimulating Hormone (TSH) 1.218 uIU/mL (0.358-3.74) Salicylates Level < 2.8 mg/dL (2.8-20.0) L Salicylate Last Dose Date Unknown Salicylate Last Dose Time Unknown Acetaminophen Level < 2 mcg/ml (10-30) L Acetaminophen Last Dose Date Unknown Acetaminophen Last Dose Time Unknown Ethyl Alcohol Level < 10 mg/dL (0-10) Urine Collection Type Unknown Urine Color Yellow Urine Clarity Clear Urine pH 7.0 Urine Specific [place] 1.020 Urine Protein Negative mg/dL (NEG-TRACE) Urine Glucose (UA) Negative mg/dL (NEG) Urine Ketones (Stick) Negative mg/dL (NEG) Urine Blood Negative (NEG) Urine Nitrite Negative (NEG) Urine Bilirubin Negative (NEG) Urine Urobilinogen Dipstick 0.2 mg/dL (0.2 mg/dL) Urine Leukocyte Esterase Negative (NEG) Urine RBC 0 /HPF (0-2) Urine WBC Rare /HPF (0-4) Urine Squamous Epithelial Cells Occ /LPF Urine Bacteria Few /HPF (0-FEW) Urine Mucus Slight /LPF Urine Opiates Screen Neg (NEG) Urine Methadone Screen Neg (NEG) Urine Barbiturates Neg (NEG) Urine Phencyclidine Screen Neg (NEG) Urine Amphetamine/Methamphetamine Neg (NEG) Urine Benzodiazepines Screen Neg (NEG) Urine Cocaine Screen Neg (NEG) Urine Cannabinoids Screen Pos (NEG) Urine Ethyl Alcohol Neg (NEG) Laboratory Tests 10/22/18 12:45 Laboratory Tests 10/22/18 12:45 EKG EKG 11:[address] King a sinus tachycardia heart rate 101 no STEMI Radiology/Procedures Radiology/Procedures []PROCEDURE: PORTABLE CHEST 1V EXAM: CHEST 1 VIEW. HISTORY: Chest pain. COMPARISON: 08/26/2018. FINDINGS: A frontal view of the chest is obtained. There are no confluent infiltrates. There is no pneumothorax or pleural effusion. The heart is not enlarged. IMPRESSION: 1. No confluent infiltrates. Electronically signed by: Jourdan Bosch MD (10/22/2018 1:02 PM) [facility] DICTATED and SIGNED BY: SUYAPA BOSCH MD DATE: 10/22/18 9505 Course & Med Decision Making Course & Med Decision Making Pertinent Labs and Imaging studies reviewed. (See chart for details) This is a 48-year-old female patient well known to this ED for pain related complaints presenting today with multiple complaints. Patient states yesterday she was started on Jaquelin a new prednisone for chronic back pain, she states she took the first dose of the medication yesterday, she also took tramadol, she states she woke up this morning and everything was hurting her head her back her legs even her chest. She is interestingly asking for pain medicine. She has no rash on arrival to the Ed- airway is open. Patient is in no distress. There was nothing acute on patient's workup today. Potassium was 3.2, we gave her oral potassium replacement. She was given Decadron, famotidine, and Benadryl as well as Toradol for her pain. Heart score-2 Talked to patient about her follow-up plan with PCP as well as pain clinic. She is stable for home discharge. She was discharged to home. Dragon Disclaimer Dragon Disclaimer This electronic medical record was generated, in whole or in part, using a voice recognition dictation system. Departure Departure Impression: Primary Impression: Hypokalemia Additional Impressions: Chronic back pain Drug reaction Disposition: HOME, SELF-CARE Condition: STABLE Referrals: ANDREIA DIOP APRN (PCP) Follow-up next week STEPHANIE ARGUETA MD follow up next week Patient Instructions: Back Pain, Adult, Drug Allergy Additional Instructions: You were evaluated in the emergency room for reaction to medication. Talk to your doctor and see if he wants you to continue taking the medication. Continue taking your Tramadol at home. Follow-up with your primary care doctor next week as well as the pain clinic. Problem Qualifiers Additional Impressions: Chronic back pain Back pain location: low back pain Back pain laterality: bilateral Sciatica presence: without sciatica Qualified Codes: M54.5 - Low back pain; G89.29 - Other chronic pain Drug reaction Encounter type: initial encounter Qualified Codes: T50.905A - Adverse effect of unspecified drugs, medicaments and biological substances, initial encounter JUAN MEZA APRN Oct 22, 2018 12:23
[2018-10-22] MEDS ORDERED: KETOROLAC 30 MG/ML VIAL. IV ONE (12:45)
--- NOTE | 2018-10-22 13:05 | RAD ---
EXAM: CHEST 1 VIEW. HISTORY: Chest pain. COMPARISON: 08/26/2018. FINDINGS: A frontal view of the chest is obtained. There are no confluent infiltrates. There is no pneumothorax or pleural effusion. The heart is not enlarged. IMPRESSION: 1. No confluent infiltrates. Electronically signed by: Jourdan Bosch MD (10/22/2018 1:02 PM) [facility]
[2018-10-22 13:06] LABS: BASO # 0.1 x10^3/uL (0.0-0.2); BASO % 1 % (0-3); EOS # 0.2 x10^3/uL (0.0-0.7); EOS % 2 % (0-3); HEMATOCRIT 41.4 % (36.0-47.0); HEMOGLOBIN 14.2 g/dL (12.0-15.5); LYMPH # 2.6 x10^3/uL (1.0-4.8); LYMPH % 24 % (24-48); MEAN CORPUSCULAR HEMOGLOBIN 30 pg (25-35); MEAN CORPUSCULAR HGB CONC 34 g/dL (31-37); MEAN CORPUSCULAR VOLUME 87 fL (79-100); MONO # 0.6 x10^3/uL (0.0-1.1); MONO % 5 % (0-9); NEUT # 7.2 x10^3uL (1.8-7.7); NEUT % 68 % (31-73); PLATELET COUNT 282 x10^3/uL (140-400); RED BLOOD COUNT 4.77 x10^6/uL (3.50-5.40); RED CELL DISTRIBUTION WIDTH 13.1 % (11.5-14.5); WHITE BLOOD COUNT 10.7 x10^3/uL (4.0-11.0)
[2018-10-22 13:18] LABS: PROTHROMBIN TIME PATIENT 12.4 SEC (11.7-14.0)
[2018-10-22 13:19] LABS: CALCIUM 9.5 mg/dL (8.5-10.1); CREATININE 0.7 mg/dL (0.6-1.0); GFR 89.7; POTASSIUM 3.2 mmol/L (3.5-5.1)
[2018-10-22 13:25] LABS: ACETAMIN < 2 mcg/ml (10-30); ETHANOL < 10 mg/dL (0-10); SALIC < 2.8 mg/dL (2.8-20.0)
[2018-10-22] MEDS ORDERED: POTASSIUM CHLORIDE 20 MEQ TABLET.ER. PO ONE (13:30)
[2018-10-22 13:35] LABS: ALBUMIN 3.5 g/dL (3.4-5.0); ALBUMIN/GLOBULIN RATIO 0.9 (1.0-1.7); CREATINE KINASE 43 U/L (26-192); MAGNESIUM 1.9 mg/dL (1.8-2.4); TOTAL BILIRUBIN 0.5 mg/dL (0.2-1.0); TOTAL PROTEIN 7.6 g/dL (6.4-8.2)
[2018-10-22 13:37] LABS: BILIRUBIN,URINE NEGATIVE (NEG); CLARITY,URINE CLEAR; COLOR,URINE YELLOW; NITRITE,URINE NEGATIVE (NEG); PROTEIN,URINE NEGATIVE (NEG-TRACE); UROBILINOGEN,URINE 0.2 mg/dL (0.2 mg/dL)
[2018-10-22 13:44] LABS: BACTERIA,URINE FEW /HPF (0-FEW); RBC,URINE 0 /HPF (0-2); WBC,URINE RARE /HPF (0-4)
[2018-10-22 13:45] LABS: SQUAMOUS EPITHELIAL CELL,UR OCC /LPF
--- NOTE | 2018-10-22 13:46 | EKG ---
[facility] [address] [place] [address] Test Date: 2018-10-22 Test Time: 11:44:20 Pat Name: ANA VELASQUEZ Department: Room: Gender: F [employer]ner: : 1970 Requested By: JUAN MEZA Order Number: [id number] Reading MD: Measurements Intervals [place] Rate: 100 P: 56 KS: 132 QRS: 37 QRSD: 84 T: 18 QT: 348 QTc: 451 Interpretive Statements SINUS TACHYCARDIA NON SPECIFIC T ABNORMALITY NON SPECIFIC ST DEPRESSION BORDERLINE ECG No previous ECG available for comparison
[2018-10-22 13:57] LABS: BARBITURATES NEG (NEG); BENZODIAZEPINES NEG (NEG); CANNABINOIDS POS (NEG); COCAINE NEG (NEG); METHADONE NEG (NEG); OPIATES NEG (NEG); PHENCYCLIDINE NEG (NEG)
[2018-10-22 13:58] LABS: AMPHETAMINE/METHAMPHETAMINE NEG (NEG)
[2018-10-22 14:12] VITALS: BP 119/62
== END 2018-10-22 14:25 | disposition home or self-care (01) ==
LOC: ER 11:35
DX: G89.29 Other chronic pain (principal); M54.5 Low back pain; E87.6 Hypokalemia; T50.995A Adverse effect of other drugs, medicaments and biological substances, initial encounter; M54.2 Cervicalgia; M79.605 Pain in left leg; M79.604 Pain in right leg; R07.89 Other chest pain; I10 Essential (primary) hypertension; F32.9 Major depressive disorder, single episode, unspecified; F41.9 Anxiety disorder, unspecified; R51 Headache; Z87.442 Personal history of urinary calculi; Z90.89 Acquired absence of other organs; Z90.710 Acquired absence of both cervix and uterus; Z79.82 Long term (current) use of aspirin; Z88.0 Allergy status to penicillin; Z88.1 Allergy status to other antibiotic agents; Z88.8 Allergy status to other drugs, medicaments and biological substances; Y92.89 Other specified places as the place of occurrence of the external cause
CPT/HCPCS: 36415; 71045; 80053; 80307; 80329; 81001; 82553; 83690; 83735; 83874; 83880; 84443; 84484; 85025; 85610; 85730; 93005; 96374; 96375; 99285; G0480; J1100; J1200; J1885; J3490; J7030

== ENCOUNTER → 2018-11-01 | Outpatient (CLI) | payer OTHER ==
[2018-10-22 14:12] VITALS: BP 119/62
[~2018-11-01] MED LIST changes: +IOHEXOL 180 MG/ML 10 ML VIAL. ONE; +methylPREDNISolone ACETATE 40 MG/ML VIAL. ONE; +methylPREDNISolone ACETATE 80 MG/ML VIAL. ONE
--- NOTE | 2018-11-01 19:28 | PAIN ---
DATE OF SERVICE: 11/01/2018 DIAGNOSES: Lumbar radiculopathy with lumbar degenerative disk disease. HISTORY OF PRESENT ILLNESS: The patient is a 48-year-old female who returns for followup status post initial evaluation and preauthorization for lumbar epidural steroid injection today. The patient reports still significant pain in the low back, bilateral lower extremities, left greater than right, but present bilaterally into the posterior gluteus, posterolateral thigh, lateral anterior thighs and anterior medial lower leg. The patient reports it is sharp, shooting, burning, radiating, becoming more constant, rates it a 10 on a scale of 10 over the past week, 8 at its average and a 7 at its least. The patient reports it awakens her from sleep about 3 times a night. The patient reports no new motor or sensory deficits. No new bowel or bladder incontinence or other complaints. PHYSICAL EXAMINATION: VITAL SIGNS: The patient's blood pressure 120/79, pulse 70, respirations 16, temperature is 97.7 degrees Fahrenheit, height is 5 feet 4 inches, weight is 216 pounds. GENERAL: The patient is awake, alert, oriented, appropriate, very pleasant demeanor. HEENT: Shows normocephalic, atraumatic. Extraocular movements intact and symmetrical. Oral cavity: Mucous membranes moist and pink. Dentition is intact. NECK: Shows anterior throat supple without palpable lymphadenopathy noted. Swallow reflex is symmetrical. CHEST: Shows normal on inspection. Breath sounds are clear bilaterally. HEART: Shows S1, S2 clear. No murmurs auscultated. ABDOMEN: Obese, soft, nontender, nondistended. No palpable organomegaly. There is no rebound or guarding demonstrated. BACK: Shows spine grossly in the midline. Normal appearing thoracic kyphosis and some slight flattening of lumber lordotic curvature. Lumbar paraspinous muscle shows symmetrical on inspection. On palpation shows some moderate tenderness throughout the upper, middle and lower distribution of the paraspinous muscles bilaterally. The patient has good rotational motion of the lumbar spine both laterally as well as extension and flexion without significant pain reported. EXTREMITIES: Lower extremities show deep tendon reflexes 1+ in the patellar and tendo calcaneus tendons. Motor exam is approximately 4 on a scale of 5 on the left and 5/5 on the right. Peripheral pulses are 1+ posterior tibial. No peripheral edema is noted. Options were discussed with the patient. The patient's old chart was reviewed as was her current medication regimen updated. Current review of systems is updated today as well. We will proceed with a lumbar epidural steroid injection today with fluoroscopic guidance. Risks were again discussed including, but not limited to bleeding, infection, possibility of epidural hematoma, subsequent neurologic compromise, dural puncture, headaches, spinal cord and/or nerve damage, side effects of steroid medication and poor results regarding pain control. The patient understands and wished to proceed. The patient will return to the clinic in approximately 2 weeks for followup, was counseled on return appointment, activity level and side effects to be aware of. DIAGNOSIS: Lumbar radiculopathy with lumbar degenerative disk disease. PROCEDURE: Lumbar epidural steroid injections translaminar approach at L4-L5 level using C-arm fluoroscopic guidance under sterile prep and drape using local anesthetic. MEDICATION INJECTED: A total of 120 mg Depo-Medrol, plus 10 mL of preservative-free normal saline and 2 mL of contrast. CONDITION AT DISCHARGE: Stable. The patient tolerated the procedure well and had no complications. STEPHANIE ARGUETA MD DR: TAMARA/juju JOB#: [id number] / [id number]
== END ==
LOC: PNCL 09:00
PROVIDERS: ATTEND Anesthesiology
DX: M51.16 Intervertebral disc disorders with radiculopathy, lumbar region (principal)
CPT/HCPCS: 62323; J1030; J1040; Q9965

== ENCOUNTER → 2018-11-15 | Outpatient (CLI) | payer OTHER ==
[2018-10-22 14:12] VITALS: BP 119/62
[~2018-11-15] MED LIST changes: -IOHEXOL 180 MG/ML 10 ML VIAL. ONE; -methylPREDNISolone ACETATE 40 MG/ML VIAL. ONE; -methylPREDNISolone ACETATE 80 MG/ML VIAL. ONE
--- NOTE | 2018-11-15 15:04 | PAIN ---
DATE OF SERVICE: 11/15/2018 DIAGNOSES: 1. Lumbar radiculopathy with lumbar degenerative disk disease. 2. Myofascial pain. HISTORY OF PRESENT ILLNESS: The patient is a 48-year-old female who returns for followup status post lumbar epidural steroid injection x 1. The patient reports only minimal decrease in pain in the low back, in mid back, especially her chief complaint is her mid back, mid upper back, worse after she helped her boyfriend lift a lawnmower several months ago. The patient reports that the pain is still in the back, worse with standing and walking activities, worse with work, worse with lifting items bending, stooping, climbing. The patient reports it as a burning pain, stabbing, sharp and shooting, radiating, becoming more constant, more severe in the mid upper back now. The patient reports it is a 10 on a scale of 10 at its worst in the last week, 9 on average, 7 at its least and is a 9 today. The patient reports no loss of motor function, no new bowel or bladder incontinence. It wakes her from sleep about 3-4 times a night. PHYSICAL EXAMINATION: VITAL SIGNS: The patient's blood pressure 132/83, pulse 80, respirations 16, temperature 97.9 degrees Fahrenheit, height is 5 feet 4 inches and weight is 220 pounds. GENERAL: The patient is awake, alert, oriented, appropriate, very pleasant demeanor. HEENT: Head is normocephalic, atraumatic. Extraocular movements are intact and symmetrical. Oral cavity: Mucous membranes moist and pink. Dentition is intact. NECK: Shows anterior throat supple without palpable lymphadenopathy noted. CHEST: Shows breath sounds clear to auscultation bilaterally. HEART: Shows S1, S2 clear. ABDOMEN: Soft, nontender. BACK: Shows spine grossly in the midline. There is moderate to significant tenderness in the upper thoracic distribution of paraspinous muscles and in the middle to lower thoracic paraspinous muscle have very severe tenderness with very firm rope-like musculature bilaterally with trigger point areas of musculature. This is true into the superior aspect of the lumbar paraspinous musculature as well bilaterally, again symmetrical, but very firm, very tender, very significant radiation into the upper and lower back with palpation bilaterally of the very firm rope-like musculature identified. The patient has good rotational motion, however, both laterally as well as extension and flexion without significant difficulty. EXTREMITIES: The patient's lower extremities show deep tendon reflexes 1+ in the patellar and tendo-calcaneus tendons. Motor exam is approximately 4 on a scale of 5 on the left and 5/5 on the right, but intact. Peripheral pulses are 1+ posterior tibia. No peripheral edema is noted. Options were discussed with the patient. The patient's old chart was reviewed as her current medication regimen updated. Current review of systems updated today as well and we will preauthorize the patient for a trigger point injections of the identified musculature, thoracic paraspinous muscles as well as lumbar paraspinous musculature. The patient will continue with stretching and strength exercises in the meantime, heat and ice application to the mid upper back as well as activity as tolerated. The patient is requesting a note for work today. We will give her today and tomorrow to rest as the work does exacerbate her pain fairly significantly. I feel she would do best with next 2 days of rest as she is working through the rest of the week and the weekend by her report. The patient also will be given hydrocodone 5 mg with instructions and side effects to be aware of, 30 tablets prescription per her request as well for something stronger for the pain as the tramadol is not helping. We discussed the risks and benefits of the medication as well as side effects and instructions on taking the medication. The patient understands and will follow up after preauthorization for trigger point injections of the thoracic and lumbar paraspinous musculature trigger point regions. STEPHANIE ARGUETA MD DR: TAMARA/juju JOB#: [id number] / [id number]
== END | disposition home or self-care (01) ==
LOC: PNCL 09:02
PROVIDERS: ATTEND Anesthesiology
DX: M51.16 Intervertebral disc disorders with radiculopathy, lumbar region (principal); M79.18 Myalgia, other site
CPT/HCPCS: G0463

== ENCOUNTER → 2018-12-09 | Outpatient (CLI) | payer OTHER ==
[~2018-12-09] MED LIST changes: +BUPIVACAINE MPF 0.25% 10 ML VIAL. ONE; +methylPREDNISolone ACETATE 40 MG/ML VIAL. ONE
--- NOTE | 2018-12-10 00:55 | PAIN ---
DATE OF SERVICE: 12/09/2018 DIAGNOSES: 1. Lumbar radiculopathy with lumbar degenerative disk disease. 2. Myofascial pain. HISTORY OF PRESENT ILLNESS: The patient is a 48-year-old female who returns for followup status post lumbar epidural steroid injection x 1 with about a 25% improvement overall. The patient reports the pain is still significant in the low back and relates now that she was picking up a lawnmower prior to her first visit here, which was not disclosed by our records from her first visit; however, she reports she did this sometime in the middle of September of this year. This caused the pain increase in her low back and now is in the mid upper back as well. We had preauthorized her for trigger point injection as she has some significant myofascial symptoms in the thoracic and lumbar paraspinous musculature. The patient would like to proceed with this today. Reports the pain is a 10 on scale of 10, its worst over the past week, 9 on average, 8 at its least, and is 9 today. The patient reports no new motor or sensory deficits, no new bowel or bladder incontinence or loss of function. The patient describes the pain is radiating, severe at times, stabbing, sharp, shooting in the mid back, especially in the low back as well. PHYSICAL EXAMINATION: VITAL SIGNS: The patient's blood pressure is 127/88, pulse 80, respirations are 18, temperature 97.2 degrees Fahrenheit, height is 5 feet 4 inches, weighs 221 pounds. GENERAL: The patient is awake, alert, oriented, appropriate, very pleasant demeanor. HEENT: Head shows normocephalic, atraumatic. Extraocular movements are intact and symmetrical. Oral cavity: Mucous membranes moist and pink. Dentition is intact. NECK: Shows anterior throat supple without palpable lymphadenopathy noted. Swallow reflex is symmetrical. CHEST: Shows normal with inspection. Breath sounds clear to auscultation bilaterally. HEART: Shows S1, S2 clear. No murmurs auscultated. ABDOMEN: Soft, nontender, nondistended. No palpable organomegaly is noted. No rebound or guarding demonstrated. BACK: Shows spine grossly in the midline. Normal appearing thoracic kyphosis, some minor flattening of lumbar lordotic curvature. Lumbar paraspinous muscle shows symmetrical on inspection and palpation, very firm rope-like musculature, more in the right side in the superior aspect of the thoracic paraspinous muscles as well as the trapezius on the right and into the bilateral middle and lower thoracic paraspinous muscles with very firm rope-like musculature consistent with trigger point areas of muscle. This is true in the bilateral lumbar paraspinous musculature as well throughout the upper, middle and lower distribution, very firm, very tender with palpation. The patient shows good rotational motion of the lumbar spine, however, both laterally as well as extension and flexion with only some minor pain with extension, but not with forward flexion. The patient's lower extremities show deep tendon reflexes at 1+ in the patellar and tendo-calcaneus tendons. Motor exam is strong, approximately 4 on a scale of 5 on the left and 5/5 on the right with dorsiflexion and extension. Peripheral pulses are 1+ posterior tibial. No peripheral edema bilaterally. Options were discussed with the patient. The patient's old chart was reviewed and current medication regimen updated. Current review of systems updated today as well. We will proceed with trigger point injections of the identified trigger point musculature. Risks were again discussed including, but not limited to bleeding, infection, possibility of intravascular injection sequelae, spread of local anesthetic and numbness, pneumothorax, side effects of steroid medication and poor results regarding pain control. The patient understands and wished to proceed. The patient will return to clinic in approximately 2 weeks for followup, was counseled on return appointment, activity level and side effects to be aware of. DIAGNOSIS: Myofascial pain. PROCEDURE: Trigger point injections, bilateral trapezius, bilateral thoracic paraspinous musculature, bilateral lumbar paraspinous musculature under sterile prep and drape using local anesthetic. MEDICATION INJECTED: A total of 40 mg Depo-Medrol plus total of 11 mL of 0.25% bupivacaine after negative aspiration at each injection site. CONDITION AT DISCHARGE: Stable. The patient tolerated procedure well, had no complications. STEPHANIE ARGUETA MD DR: TAMARA/juju JOB#: [id number] / [id number]
== END ==
LOC: PNCL 08:56
PROVIDERS: ATTEND Anesthesiology
DX: M79.18 Myalgia, other site (principal); M51.16 Intervertebral disc disorders with radiculopathy, lumbar region
CPT/HCPCS: 20553; J1030; J3490

== ENCOUNTER → 2019-01-19 | Outpatient (CLI) | payer OTHER ==
[~2019-01-19] MED LIST changes: -BUPIVACAINE MPF 0.25% 10 ML VIAL. ONE; +LISI1TAB20 PO; -LISI1TAB7 PO; -methylPREDNISolone ACETATE 40 MG/ML VIAL. ONE
--- NOTE | 2019-01-19 16:07 | KCIC ---
THORACIC SPINE WO CONTRAST History: Thoracic spine degenerative disc disease. Low thoracic and lumbar pain since injury. Technique: Multiplanar, multi sequential noncontrast MR imaging was performed of the thoracic spine. Comparison: Lumbar spine MRI October 01, 2018. Findings: Normal vertebral body height. No fracture. Normal alignment. No pathologic marrow replacing process. Normal appearance of the thoracic spinal cord. No signal abnormality. Mild multilevel degenerative disc disease. Small posterior disc protrusions T4-T5, T8-T9, T9-T10 and T10-T11. Mild cord flattening T4-T5, T8-T9 and no canal narrowing. No neuroforaminal narrowing. Multilevel partially imaged mild cervical spondylosis. Impression: 1. Mild multilevel thoracic spondylosis with mild cord flattening. No significant canal or neuroforaminal narrowing. Electronically signed by: Claudio Villalobos DO (01/19/2019 4:05 PM) [id number]
== END | disposition home or self-care (01) ==
LOC: KCIC MRI 13:35
PROVIDERS: ATTEND Nurse Practitioner Family
DX: M51.34 Other intervertebral disc degeneration, thoracic region (principal); M47.894 Other spondylosis, thoracic region; M51.24 Other intervertebral disc displacement, thoracic region
CPT/HCPCS: 72146

== ENCOUNTER 2019-07-11 10:59 | Emergency (ER) | payer BC, OTHER ==
[~2019-07-11] VITALS: Ht 162.6 cm; Wt 105.0 kg
[2019-07-11] MEDS ORDERED: fentaNYL PF VIAL 100 MCG/2 ML VIAL IV ONE (12:30)
[2019-07-11] MEDS ORDERED: ONDANSETRON PF 4 MG/2 ML VIAL. IV ONE (12:30)
[2019-07-11] MEDS ORDERED: IV NORMAL SALINE 1000ML BAG 1,000 ML IV ONE (12:30)
[2019-07-11 12:43] LABS: BASO % 1 % (0-3); EOS # 0.1 x10^3/uL (0.0-0.7); EOS % 2 % (0-3); HEMATOCRIT 42.8 % (36.0-47.0); HEMOGLOBIN 14.4 g/dL (12.0-15.5); LYMPH # 2.4 x10^3/uL (1.0-4.8); LYMPH % 31 % (24-48); MEAN CORPUSCULAR HEMOGLOBIN 30 pg (25-35); MEAN CORPUSCULAR HGB CONC 34 g/dL (31-37); MEAN CORPUSCULAR VOLUME 88 fL (79-100); MONO # 0.4 x10^3/uL (0.0-1.1); MONO % 5 % (0-9); NEUT % 63 % (31-73); PLATELET COUNT 292 x10^3/uL (140-400); RED BLOOD COUNT 4.87 x10^6/uL (3.50-5.40); RED CELL DISTRIBUTION WIDTH 13.6 % (11.5-14.5)
[2019-07-11] MEDS ORDERED: IOHEXOL 300 MG/ML 100ML VIAL. IV ONE (12:45)
[2019-07-11] MEDS ORDERED: CONTRAST GIVEN. MC PRN (12:45)
[2019-07-11 13:24] LABS: BILIRUBIN,URINE SMALL (NEG); CLARITY,URINE CLEAR; NITRITE,URINE NEGATIVE (NEG); PH,URINE 7.5; PROTEIN,URINE 30 mg/dL (NEG-TRACE)
[2019-07-11 13:38] LABS: COLOR,URINE YELLOW
[2019-07-11 13:39] LABS: SQUAMOUS EPITHELIAL CELL,UR MOD /LPF
[2019-07-11 13:40] LABS: AMORPHOUS SEDIMENT,UR PRESENT /HPF; BACTERIA,URINE MODERATE /HPF (0-FEW); WBC,URINE OCC /HPF (0-4)
[2019-07-11 13:53] LABS: CALCIUM 9.1 mg/dL (8.5-10.1); CREATININE 0.7 mg/dL (0.6-1.0); GFR 89.7; POTASSIUM 3.7 mmol/L (3.5-5.1)
[2019-07-11 13:59] LABS: ALBUMIN 3.6 g/dL (3.4-5.0); ALBUMIN/GLOBULIN RATIO 0.9 (1.0-1.7); TOTAL BILIRUBIN 0.3 mg/dL (0.2-1.0); TOTAL PROTEIN 7.7 g/dL (6.4-8.2)
[2019-07-11 14:10] VITALS: BP 102/67
--- NOTE | 2019-07-11 14:30 | RAD ---
CT ABD PELV W/ IV CONTRST ONLY Indication: Right lower quadrant pain. Prior hysterectomy Exposure: One or more of the following individualized dose reduction techniques were utilized for this examination: 1. Automated exposure control 2. Adjustment of the mA and/or kV according to patient size 3. Use of iterative reconstruction technique. Technique: Intravenous contrast was given. No oral contrast per request. Comparison: 06/27/2018. FINDINGS: Small flat pulmonary nodule in the right lung base, measures 6 x 2 mm, and is associated with the minor fissure. This would most commonly be benign. Liver appears enlarged, about 21.5 cm cephalocaudal at the right lobe, unchanged. Spleen mildly enlarged, 14 cm, unchanged. Small accessory splenule is identified. Pancreas appears unremarkable. No evidence of adrenal mass. Kidneys demonstrate symmetric enhancement without hydronephrosis. Low-density lesion arising from the posterior left kidney measures 3 cm diameter and 19 Hounsfield units, and is of similar size to prior study, most likely a cyst. No calcified gallstone. The aorta is mildly calcified, without aneurysm. No evidence of pathologic lymph node enlargement. No abnormality is seen at the stomach. No significant small bowel distention. No evidence of acute colitis. The appendix appears normal. No evidence of ascites. No pneumoperitoneum. Urinary bladder is incompletely distended. Degenerative spondylosis. Vertebral body height and alignment are intact. No aggressive bone destruction. IMPRESSION: 1. Small fissural pulmonary nodule with a flap morphology, would most commonly be benign. 2. Mild hepatosplenomegaly again seen 3. Left renal lesion is stable, most likely a cyst. Electronically signed by: Iván Reyes MD (07/11/2019 2:27 PM) [email or web address]
--- NOTE | 2019-07-11 14:38 | PHYS DOC ---
Past Medical History Past Medical History: Anxiety, Depression, Diverticulitis, Hypertension, Kidney Stone, Other Additional Past Medical Histor: BACK PAIN Past Surgical History: Tonsillectomy, Other Additional Past Surgical Histo: PARTIAL HYSTERECTOMY, ADENOIDS REMOVED Smoking Status: Former Smoker Alcohol Use: None Drug Use: None Adult General Chief Complaint Chief Complaint: ABDOMINAL PAIN HPI HPI Patient is a 48 year old female presenting with abdominal pain and diarrhea she has had diarrhea for the last few days. She says that about 5 days it's mostly yellow in color she has nausea no fever she has not thrown up. She also has sharp lower abdominal pain more on the right for the last 2 or 3 days and she also notices urinary urgency which is long-standing several months but worse over the last week she wanted it checked out no chest pain noted. Symptoms are moderate slowly worsening with time. Review of Systems Review of Systems Constitutional: Denies fever or chills [] Eyes: Denies change in visual acuity, redness, or eye pain [] HENT: Denies nasal congestion or sore throat [] Musculoskeletal: Denies back pain or joint pain [] Integument: Denies rash or skin lesions [] Neurologic: Denies headache, focal weakness or sensory changes [] Endocrine: Denies polyuria or polydipsia [] All other systems were reviewed and found to be within normal limits, except as documented in this note. Current Medications Current Medications Current Medications Medications (Trade) Dose Ordered Sig/Mauro Start Time Stop Time Status Last Admin Dose Admin Fentanyl Citrate (Fentanyl 2ml Vial) 50 mcg 1X ONCE 07/11/19 12:30 07/11/19 12:31 DC 07/11/19 12:57 50 MCG Info (CONTRAST GIVEN -- Rx MONITORING) 1 each PRN DAILY PRN 07/11/19 12:45 07/13/19 12:44 Iohexol (Omnipaque 300 Mg/ml) 75 ml 1X ONCE 07/11/19 12:45 07/11/19 12:46 DC 07/11/19 12:45 75 ML Ondansetron HCl (Zofran) 4 mg 1X ONCE 07/11/19 12:30 07/11/19 12:31 DC 07/11/19 12:56 4 MG Sodium Chloride 1,000 ml @ 1,000 mls/hr 1X ONCE 07/11/19 12:30 07/11/19 13:29 DC 07/11/19 12:57 1,000 MLS/HR Allergies Allergies Allergies Coded Allergies Type Severity Reaction Last Updated Verified prednisone Allergy Mild rash,itching 10/22/18 Yes Penicillins Adverse Reaction Intermediate stomach cramps 08/26/18 No azithromycin Adverse Reaction Intermediate increases BP 08/26/18 No Physical Exam Physical Exam Constitutional: Well developed, well nourished, no acute distress, non-toxic appearance. [] HENT: Normocephalic, atraumatic, bilateral external ears normal, oropharynx moist, no oral exudates, nose normal. [] Eyes: PERRLA, EOMI, conjunctiva normal, no discharge. [] Neck: Normal range of motion, no tenderness, supple, no stridor. [] Cardiovascular:Heart rate regular rhythm, no murmur [] Lungs & Thorax: Bilateral breath sounds clear to auscultation [] Abdomen: Bowel sounds normal, soft, right lower quadrant tenderness is noted Skin: Warm, dry, no erythema, no rash. [] Back: No tenderness, no CVA tenderness. [] Extremities: No tenderness, no cyanosis, no clubbing, ROM intact, no edema. [] Neurologic: Alert and oriented X 3, normal motor function, normal sensory function, no focal deficits noted. [] Psychologic: Affect normal, judgement normal, mood normal. [] Current Patient Data Vital Signs Vital Signs Date Time Temp Pulse Resp B/P (MAP) Pulse Ox O2 Delivery O2 Flow Rate FiO2 07/11/19 12:57 16 100 Room Air Lab Values Laboratory Tests Test 07/11/19 12:15 07/11/19 13:15 White Blood Count 8.0 x10^3/uL (4.0-11.0) Red Blood Count 4.87 x10^6/uL (3.50-5.40) Hemoglobin 14.4 g/dL (12.0-15.5) Hematocrit 42.8 % (36.0-47.0) Mean Corpuscular Volume 88 fL (79-100) Mean Corpuscular Hemoglobin 30 pg (25-35) Mean Corpuscular Hemoglobin Concent 34 g/dL (31-37) Red Cell Distribution Width 13.6 % (11.5-14.5) Platelet Count 292 x10^3/uL (140-400) Neutrophils (%) (Auto) 63 % (31-73) Lymphocytes (%) (Auto) 31 % (24-48) Monocytes (%) (Auto) 5 % (0-9) Eosinophils (%) (Auto) 2 % (0-3) Basophils (%) (Auto) 1 % (0-3) Neutrophils # (Auto) 5.0 x10^3/uL (1.8-7.7) Lymphocytes # (Auto) 2.4 x10^3/uL (1.0-4.8) Monocytes # (Auto) 0.4 x10^3/uL (0.0-1.1) Eosinophils # (Auto) 0.1 x10^3/uL (0.0-0.7) Basophils # (Auto) 0.0 x10^3/uL (0.0-0.2) Sodium Level 142 mmol/L (136-145) Potassium Level 3.7 mmol/L (3.5-5.1) Chloride Level 104 mmol/L (98-107) Carbon Dioxide Level 31 mmol/L (21-32) Anion Gap 7 (6-14) Blood Urea Nitrogen 10 mg/dL (7-20) Creatinine 0.7 mg/dL (0.6-1.0) Estimated GFR (Cockcroft-Gault) 89.7 BUN/Creatinine Ratio 14 (6-20) Glucose Level 87 mg/dL (70-99) Calcium Level 9.1 mg/dL (8.5-10.1) Total Bilirubin 0.3 mg/dL (0.2-1.0) Aspartate Amino Transferase (AST) 36 U/L (15-37) Alanine Aminotransferase (ALT) 42 U/L (14-59) Alkaline Phosphatase 84 U/L (46-116) Total Protein 7.7 g/dL (6.4-8.2) Albumin 3.6 g/dL (3.4-5.0) Albumin/Globulin Ratio 0.9 (1.0-1.7) L Urine Collection Type U cath Urine Color Yellow Urine Clarity Clear Urine pH 7.5 Urine Specific [place] >=1.030 Urine Protein 30 mg/dL (NEG-TRACE) Urine Glucose (UA) Negative mg/dL (NEG) Urine Ketones (Stick) Negative mg/dL (NEG) Urine Blood Trace (NEG) Urine Nitrite Negative (NEG) Urine Bilirubin Small (NEG) Urine Urobilinogen Dipstick 1.0 mg/dL (0.2 mg/dL) Urine Leukocyte Esterase Negative (NEG) Urine RBC 6-10 /HPF (0-2) Urine WBC Occ /HPF (0-4) Urine Squamous Epithelial Cells Mod /LPF Urine Amorphous Sediment Present /HPF Urine Bacteria Moderate /HPF (0-FEW) Urine Mucus Marked /LPF Laboratory Tests 07/11/19 12:15 Laboratory Tests 07/11/19 12:15 EKG EKG [] Radiology/Procedures Radiology/Procedures [] Impressions: IMPRESSION: 1. Small fissural pulmonary nodule with a flap morphology, would most commonly be benign. 2. Mild hepatosplenomegaly again seen 3. Left renal lesion is stable, most likely a cyst. Electronically signed by: Iván Reyes MD (07/11/2019 2:27 PM) [id number] DICTATED and SIGNED BY: IVÁN REYES MD DATE: 07/11/19 1426 Course & Med Decision Making Course & Med Decision Making Pertinent Labs and Imaging studies reviewed. (See chart for details) []48-year-old female with lower abdominal pain and diarrhea. Moderately tender on initial examination so I proceeded with a lab workup and CT scan which was negative acute patient was discharged in stable condition. Dragon Disclaimer Dragon Disclaimer This electronic medical record was generated, in whole or in part, using a voice recognition dictation system. Departure Departure Impression: Primary Impression: DIARRHEA, UNSPECIFIED Disposition: HOME, SELF-CARE Condition: IMPROVED Referrals: ANDREIA DIOP APRN (PCP) RYAN CONNER MD Jul 11, 2019 14:38
== END 2019-07-11 15:34 | disposition home or self-care (01) ==
LOC: ER 10:59
DX: R19.7 Diarrhea, unspecified (principal); R10.31 Right lower quadrant pain; R35.0 Frequency of micturition; R11.0 Nausea; F41.9 Anxiety disorder, unspecified; F32.9 Major depressive disorder, single episode, unspecified; I10 Essential (primary) hypertension; Z87.891 Personal history of nicotine dependence; Z87.442 Personal history of urinary calculi; Z90.89 Acquired absence of other organs; Z98.890 Other specified postprocedural states; Z88.8 Allergy status to other drugs, medicaments and biological substances; Z79.899 Other long term (current) drug therapy
CPT/HCPCS: 36415; 74177; 80053; 81001; 85025; 87086; 96361; 96374; 96375; 99285; J2405; J3010; J7030; Q9967

== ENCOUNTER 2020-05-18 14:16 | Emergency (ER) | payer SELFPAY ==
[~2020-05-18] VITALS: Ht 162.6 cm; Wt 90.9 kg
[2020-05-18 14:41] LABS: BASO # 0.1 x10^3/uL (0.0-0.2); BASO % 1 % (0-3); EOS # 0.2 x10^3/uL (0.0-0.7); EOS % 2 % (0-3); HEMATOCRIT 41.8 % (36.0-47.0); HEMOGLOBIN 14.3 g/dL (12.0-15.5); LYMPH % 19 % (24-48); MEAN CORPUSCULAR HEMOGLOBIN 30 pg (25-35); MEAN CORPUSCULAR HGB CONC 34 g/dL (31-37); MEAN CORPUSCULAR VOLUME 86 fL (79-100); MONO # 0.6 x10^3/uL (0.0-1.1); MONO % 5 % (0-9); NEUT # 7.8 x10^3/uL (1.8-7.7); NEUT % 74 % (31-73); PLATELET COUNT 251 x10^3/uL (140-400); RED BLOOD COUNT 4.85 x10^6/uL (3.50-5.40); WHITE BLOOD COUNT 10.6 x10^3/uL (4.0-11.0)
--- NOTE | 2020-05-18 14:41 | ED.ADGEN ---
Past Medical History Past Medical History: Anxiety, Depression, Diverticulitis, Hypertension, Kidney Stone, Other Additional Past Medical Histor: BACK PAIN Past Surgical History: Tonsillectomy, Other Additional Past Surgical Histo: PARTIAL HYSTERECTOMY, ADENOIDS REMOVED Smoking Status: Former Smoker Alcohol Use: None Drug Use: None General Adult EDM: Chief Complaint: CHEST PAIN HPI: HPI: Patient is a 49-year-old female with past medical history of fibromyalgia who presents to the emergency room complaining of bilateral chest pain that radiates into her back and neck. This started at 7:00 this morning and has been constant since then. She tried to take Tylenol without any relief. Pain is worse with movement and deep breathing. She feels like she cannot get a deep breath. She denies any significant shortness of breath, fever, chills, sweats, cough. She was feeling normal yesterday when she went to sleep. Review of Systems: Review of Systems: Complete ROS is negative unless otherwise documented in HPI Current Medications: Current Medications Medications (Trade) Dose Ordered Sig/Mauro Start Time Stop Time Status Last Admin Dose Admin Ketorolac Tromethamine (Toradol 30mg Vial) 30 mg 1X ONCE 05/18/20 15:15 05/18/20 15:16 DC 05/18/20 14:56 30 MG Allergies: Allergies: Allergies Coded Allergies Type Severity Reaction Last Updated Verified prednisone Allergy Mild rash,itching 10/22/18 Yes Penicillins Adverse Reaction Intermediate stomach cramps 08/26/18 No azithromycin Adverse Reaction Intermediate increases BP 08/26/18 No Physical Exam: PE: General: Awake, alert, NAD. Well Nourished, well hydrated. Cooperative HEENT: Atraumatic, EOMI, PERRL, airway patent, moist oral mucosa Neck: Supple, trachea midline Respiratory: CTA bilaterally, normal effort, no wheezing/crackles, diffuse chest wall tenderness CV: RRR, no murmur, cap refill <2 GI: Soft, nondistended, nontender, no masses MSK: No obvious deformities Skin: Warm, dry, intact Neuro: A&O x3, speech NL, sensory and motor grossly intact, no focal deficits Psych: Normal affect, normal mood, not suicidal or homicidal Current Patient Data: Labs: Laboratory Tests Test 05/18/20 14:25 05/18/20 15:24 White Blood Count 10.6 x10^3/uL (4.0-11.0) Red Blood Count 4.85 x10^6/uL (3.50-5.40) Hemoglobin 14.3 g/dL (12.0-15.5) Hematocrit 41.8 % (36.0-47.0) Mean Corpuscular Volume 86 fL (79-100) Mean Corpuscular Hemoglobin 30 pg (25-35) Mean Corpuscular Hemoglobin Concent 34 g/dL (31-37) Red Cell Distribution Width 13.0 % (11.5-14.5) Platelet Count 251 x10^3/uL (140-400) Neutrophils (%) (Auto) 74 % (31-73) H Lymphocytes (%) (Auto) 19 % (24-48) L Monocytes (%) (Auto) 5 % (0-9) Eosinophils (%) (Auto) 2 % (0-3) Basophils (%) (Auto) 1 % (0-3) Neutrophils # (Auto) 7.8 x10^3/uL (1.8-7.7) H Lymphocytes # (Auto) 2.0 x10^3/uL (1.0-4.8) Monocytes # (Auto) 0.6 x10^3/uL (0.0-1.1) Eosinophils # (Auto) 0.2 x10^3/uL (0.0-0.7) Basophils # (Auto) 0.1 x10^3/uL (0.0-0.2) D-Dimer (Julia) 0.40 ug/mlFEU (0.00-0.50) Sodium Level 141 mmol/L (136-145) Potassium Level 3.4 mmol/L (3.5-5.1) L Chloride Level 102 mmol/L (98-107) Carbon Dioxide Level 30 mmol/L (21-32) Anion Gap 9 (6-14) Blood Urea Nitrogen 7 mg/dL (7-20) Creatinine 0.5 mg/dL (0.6-1.0) L Estimated GFR (Cockcroft-Gault) 131.7 BUN/Creatinine Ratio 14 (6-20) Glucose Level 116 mg/dL (70-99) H Calcium Level 9.5 mg/dL (8.5-10.1) Total Bilirubin 0.4 mg/dL (0.2-1.0) Aspartate Amino Transferase (AST) 30 U/L (15-37) Alanine Aminotransferase (ALT) 44 U/L (14-59) Alkaline Phosphatase 84 U/L (46-116) Lactate Dehydrogenase 118 U/L (81-234) Creatine Kinase 41 U/L (26-192) Troponin I Quantitative < 0.017 ng/mL (0.000-0.055) C-Reactive Protein, Quantitative 27.9 mg/L (0-3.3) H Total Protein 7.4 g/dL (6.4-8.2) Albumin 3.5 g/dL (3.4-5.0) Albumin/Globulin Ratio 0.9 (1.0-1.7) L Laboratory Tests 05/18/20 14:25 Laboratory Tests 05/18/20 15:24 Vital Signs: Vital Signs Date Time Temp Pulse Resp B/P (MAP) Pulse Ox O2 Delivery O2 Flow Rate FiO2 05/18/20 14:16 99.4 106 22 151/97 (115) 100 Room Air 99.4 EKG: EKG: [] Heart Score: Risk Factors: Risk Factors: DM, Current or recent (<one month) smoker, HTN, HLP, family history of CAD, obesity. Risk Scores: Score 0 - 3: 2.5% MACE over next 6 weeks - Discharge Home Score 4 - 6: 20.3% MACE over next 6 weeks - Admit for Clinical Observation Score 7 - 10: 72.7% MACE over next 6 weeks - Early Invasive Strategies Radiology/Procedures: Radiology/Procedures: [] Course & Med Decision Making: Course & Med Decision Making Pertinent Labs and Imaging studies reviewed. (See chart for details) Patient is a 49-year-old female who presents to the emergency room complaining of atypical chest pain. Pain does have a pleuritic nature and patient is tachycardic upon my evaluation. A D-dimer was ordered to evaluate for pulmonary embolism. Cardiac work-up was ordered including CBC, BMP, troponin. It is possible that patient is starting to develop symptoms of novel coronavirus 19 and risk stratifying labs were ordered for this. Patient was given Toradol for pain. Work-up is negative. Patient has a normal D-dimer making dissection and pulmonary embolism highly unlikely. Chest x-ray is stable from prior. She does not have a widened mediastinum or signs of pneumonia. While in the emergency room patient states that she is feeling much better would like to go home. Patient's test results and vitals while in the ED were fully reviewed and discussed with the patient. Patient is stable and at this time does not need admission to the hospital. We have discussed strict return precautions and the importance of following up with their Primary Care Physician. Patient stated understanding and was given an opportunity to ask any questions. Patient is in agreement with plan. Dragon Disclaimer: Dragon Disclaimer: This electronic medical record was generated, in whole or in part, using a voice recognition dictation system. Departure Departure Impression: Primary Impression: Chest pain Disposition: 01 DC HOME SELF CARE/HOMELESS Condition: STABLE Referrals: ANDREIA DIOP APRN (PCP) Patient Instructions: Chest Pain (Nonspecific) LISETH HENRIQUEZ MD May 18, 2020 14:41
--- NOTE | 2020-05-18 14:54 | RAD ---
EXAM: Chest, single view. HISTORY: Cough. COMPARISON: 10/22/2018 FINDINGS: A frontal view of the chest is obtained. There is stable diffuse increased interstitial opa city. There is no consolidation, pleural effusion or pneumothorax. The heart is normal in size. IMPRESSION: Stable diffuse interstitial prominence. No consolidated infiltrate is seen. Electronically signed by: Nasra Gonsalez MD (05/18/2020 2:51 PM) [facility]
[2020-05-18] MEDS ORDERED: KETOROLAC 30 MG/ML VIAL. IVP ONE (15:15)
[2020-05-18 15:42] LABS: CALCIUM 9.5 mg/dL (8.5-10.1); CREATININE 0.5 mg/dL (0.6-1.0); GFR 131.7; POTASSIUM 3.4 mmol/L (3.5-5.1)
[2020-05-18 15:48] LABS: ALBUMIN 3.5 g/dL (3.4-5.0); ALBUMIN/GLOBULIN RATIO 0.9 (1.0-1.7); C-REACTIVE PROTEIN 27.9 mg/L (0-3.3); TOTAL BILIRUBIN 0.4 mg/dL (0.2-1.0); TOTAL PROTEIN 7.4 g/dL (6.4-8.2)
[2020-05-18 16:48] VITALS: BP 121/74
== END 2020-05-18 16:45 | disposition home or self-care (01) ==
LOC: ER 14:16
DX: R07.89 Other chest pain (principal); F41.9 Anxiety disorder, unspecified; F32.9 Major depressive disorder, single episode, unspecified; I10 Essential (primary) hypertension; Z87.442 Personal history of urinary calculi; Z90.89 Acquired absence of other organs; Z90.710 Acquired absence of both cervix and uterus; Z98.890 Other specified postprocedural states; Z87.891 Personal history of nicotine dependence; Z88.8 Allergy status to other drugs, medicaments and biological substances
CPT/HCPCS: 36415; 71045; 80053; 82550; 83615; 83880; 84484; 85025; 85379; 86140; 96374; 99285; J1885